=== PATIENT | female | born 1950 | race Caucasian/White ===

== ENCOUNTER 2020-02-18 08:23 | Outpatient (REF) | payer MEDICARE, BC, SELFPAY ==
[2020-02-18 11:55] LABS: Alanine Aminotransferase 32 U/L (0-31); Anion Gap 14 (12-20); Aspartate Amino Transferase 36 U/L (5-31); Blood Urea Nitrogen 21 mg/dL (9-16); Calcium 9.4 mg/dL (8.4-10.2); Carbon Dioxide 25 mmol/L (22-29); Chloride 106 mmol/L (96-108); Cholesterol 236 mg/dL; Estimated Glomerular Filt Rate 50; Glucose Fasting 90 mg/dL (60-99); HDL Cholesterol 65 mg/dL; LDL Cholesterol Calculated 131 mg/dl; Potassium 4.3 mmol/l (3.3-5.1); Sodium 141 mmol/L (135-145); Triglycerides 203 mg/dL
[2020-02-18 12:03] LABS: Vitamin D 25-OH Total 41.2 ng/mL (>30)
== END 2020-02-18 08:24 | disposition home or self-care (01) ==
LOC: HO.HMGCLDS 08:23
PROVIDERS: PCP Internal Medicine; Visit Provider Internal Medicine
DX: M17.0 Bilateral primary osteoarthritis of knee (principal); E78.5 Hyperlipidemia, unspecified; I10 Essential (primary) hypertension; Z78.0 Asymptomatic menopausal state
CPT/HCPCS: 80048; 80061; 82306; 84450; 84460

== ENCOUNTER 2020-06-06 11:00 | Outpatient (RCR) | payer MEDICARE, BC, SELFPAY ==
--- NOTE | 2020-04-26 10:54 | MHC.PT.EP ---
[facility] [facility] [place] [facility] [place] [facility] [address] Andrzej Jones [address] [phone] F: [phone] F: [phone] F: [phone] F: [phone] Physical Therapy Plan of Care Date of Evaluation: 04/26/20 Date of Surgery: Diagnosis: Pt PRESENTED W SCRIPT FOR TENDINITIS OF LEFT ANKLE Assessment: 70 YO FEMALE REF TO PT FOR LEFT LAT ANKLE TENDINITIS x 1 MONTH DURATION- SHE IS RETIRED, BUT ACTIVE. OBJECTIVELY, Pt HAS DECR AROM W ANKLE DF/ EVER/ INVR; WEAKNESS IN PROX LEs, (+) PELVIC ASYMM, AND PAIN W PALP Lt SUPRALAT MALL. SHE HAS ACHINESS INTO HER LEFT HIP W INCR WT BEARING. FUNCTIONALLY, Pt HAS NOT BEEN ABLE TO FITNESS WALK, DECR STANDING AND STAIR MGMT MELITON. HER KNEE PAIN LIMITS FUNCTIONAL SQUATTING. Pt IS A GOOD PT CANDIDATE TO ADDRESS PAIN, FUNCTIONAL, DEV HEP, AND IMPROVE SELF SX MGMT. Frequency and Duration: The patient will be seen 2 x WK x 4 WKs Short Term Goals: DECR Pt'S PAIN TO A 2-3/10 AT MAX IN 2 WKS Pt DEMON IMPROVED AROM JOSE ANKLE DF,INV,EVER IN 2 WKS Custodial Goals: Pt INDEP HEP ADDRESSING STRENGTH AND ROM AND SELF SX MGMT IN 4 WKS Pt RESUME FITNESS WALKING AND REG ADLs EVIDENT W IMPROVED LEFT SCORE BY 20 POINTS (AT EVAL 44/80) IN 4 WKS Treatment Plan: Modalities to reduce pain, spasms and effusion. Manual therapy to restore motion and function. Therapeutic exercise to improve strength and flexibility. Neuromuscular re-education for posture and balance. Therapeutic activities to return to functional activities of daily living. Electronically signed by: Viktoria Sexton, PT Please sign and return to therapist. Thank you for your referral.
--- NOTE | 2020-06-06 12:05 | MHC.PT.DC ---
[facility] [facility] [place] [facility] [place] [facility] [address] Andrzej Jones [address] [phone] F: [phone] F: [phone] F: [phone] F: [phone] Physical Therapy Discharge Report Diagnosis: Pt PRESENTED W SCRIPT FOR TENDINITIS OF LEFT ANKLE Date of Surgery: Date of Evaluation: 04/26/20 Date of Discharge: 06/06/20 Treatments to Date: 11 Cancellations to Date: 0 No Shows to Date: 0 Discharge Status: Achieved Goals Improved Function Independent with HEP Discharge Summary: Pt PLEASED W HER PROGRESS- NO PAIN W ADLs- SHE HAS RESUMED HER FITNESS WALKING W/O SXS- SHE IS COMPLIANT W HER HEP AND WAYS TO SELF-PROGRESS; MET PT GOALS, READY FOR D/C THIS DATE Electronically signed by: Viktoria Sexton, PT Please sign and return to therapist. Thank you for your referral.
== END 2020-06-06 12:07 | disposition other institution (70) ==
LOC: HO.PTCHIC 11:00
PROVIDERS: Visit Provider Internal Medicine
DX: M77.52 Other enthesopathy of left foot and ankle (principal)
CPT/HCPCS: 97110; 97112; 97140; 97162

== ENCOUNTER 2020-06-22 09:28 | Outpatient (REF) | payer MEDICARE, BC, SELFPAY ==
[2020-06-22 12:20] LABS: Vitamin D 25-OH Total 39.7 ng/mL (>30)
[2020-06-22 12:24] LABS: Alanine Aminotransferase 35 U/L (0-31); Anion Gap 14 (12-20); Aspartate Amino Transferase 39 U/L (5-31); Blood Urea Nitrogen 22 mg/dL (9-16); Calcium 9.4 mg/dL (8.4-10.2); Carbon Dioxide 26 mmol/L (22-29); Chloride 106 mmol/L (96-108); Cholesterol 237 mg/dL; Estimated Glomerular Filt Rate 54; Glucose Fasting 98 mg/dL (60-99); HDL Cholesterol 64 mg/dL; LDL Cholesterol Calculated 128 mg/dl; Potassium 4.5 mmol/L (3.3-5.1); Sodium 141 mmol/L (135-145); Triglycerides 225 mg/dL
== END 2020-06-22 09:29 | disposition home or self-care (01) ==
LOC: HO.HMGCLDS 09:28
PROVIDERS: PCP Internal Medicine; Visit Provider Internal Medicine
DX: E78.5 Hyperlipidemia, unspecified (principal); M85.832 Other specified disorders of bone density and structure, left forearm; I10 Essential (primary) hypertension; Z78.0 Asymptomatic menopausal state
CPT/HCPCS: 36415; 80048; 80061; 82306; 84450; 84460

== ENCOUNTER 2021-01-05 10:02 | Outpatient (REF) | payer MEDICARE, BC, SELFPAY ==
--- NOTE | ~2021-01-05 | MM_ITS ---
EXAMINATION: MM SCREENING DIGITAL BREAST TOMOSYNTHESIS, BILATERAL CLINICAL INFORMATION: Screening. Asymptomatic. The lifetime risk of breast cancer based on the Tyrer-Cuzick Model is 8.4%. COMPARISON: Mammography: October 12, 2019 and studies dating back to October 05, 2015 TECHNIQUE: Digital breast tomosynthesis is performed in both the craniocaudal and mediolateral oblique views along with computer-aided detection (CAD). Synthesized 2D images are generated from the tomosynthesis. FINDINGS: There are scattered areas of fibroglandular density (ACR BI-RADS breast composition Category b). There are no significant masses, abnormal calcifications, or other abnormalities. MM/MM tomosynthesis screening BI IMPRESSION: There are no significant changes from prior study. ASSESSMENT: BI-RADS 1: Negative RECOMMENDATION: Routine annual mammography screening. This patient's information was entered into a reminder system with a target due date for their next mammogram.
== END 2021-01-05 10:03 | disposition home or self-care (01) ==
LOC: HO.MAMMO 10:02
PROVIDERS: Visit Provider Internal Medicine
DX: Z12.31 Encounter for screening mammogram for malignant neoplasm of breast (principal)
CPT/HCPCS: 77063; 77067

== ENCOUNTER 2021-10-17 09:10 | Outpatient (REF) | payer MEDICARE, BC, SELFPAY ==
[2021-10-17 11:59] LABS: Alanine Aminotransferase 25 U/L (0-31); Anion Gap 15 (12-20); Aspartate Amino Transferase 21 U/L (5-31); Blood Urea Nitrogen 28 mg/dL (9-16); Calcium 9.9 mg/dL (8.4-10.2); Carbon Dioxide 25 mmol/L (22-29); Chloride 105 mmol/L (96-108); Cholesterol 257 mg/dL; Estimated Glomerular Filt Rate 40; Glucose Fasting 94 mg/dL (60-99); HDL Cholesterol 81 mg/dL; LDL Cholesterol Calculated 151 mg/dl; Potassium 5.3 mmol/L (3.3-5.1); Sodium 140 mmol/L (135-145); Triglycerides 125 mg/dL
[2021-10-17 12:03] LABS: Vitamin D 25-OH Total 30.7 ng/mL (>30)
== END 2021-10-17 09:11 | disposition home or self-care (01) ==
LOC: HO.HMGCLDS 09:10
PROVIDERS: PCP Internal Medicine; Visit Provider Internal Medicine
DX: E78.2 Mixed hyperlipidemia (principal); I10 Essential (primary) hypertension; M85.832 Other specified disorders of bone density and structure, left forearm; Z78.0 Asymptomatic menopausal state
CPT/HCPCS: 36415; 80048; 80061; 82306; 84450; 84460

== ENCOUNTER 2021-10-20 11:05 | Outpatient (REF) | payer MEDICARE, BC, SELFPAY ==
[2021-10-20 14:24] LABS: Anion Gap 14 (12-20); Carbon Dioxide 25 mmol/L (22-29); Chloride 106 mmol/L (96-108); Potassium 4.2 mmol/L (3.3-5.1); Sodium 141 mmol/L (135-145)
== END 2021-10-20 11:06 | disposition home or self-care (01) ==
LOC: HO.HMGCLDS 11:05
PROVIDERS: PCP Nurse Practitioner Family; Visit Provider Nurse Practitioner Family
DX: E87.5 Hyperkalemia (principal)
CPT/HCPCS: 36415; 80051

== ENCOUNTER 2022-01-11 10:08 | Outpatient (REF) | payer MEDICARE, BC, SELFPAY ==
--- NOTE | ~2022-01-11 | MM_ITS ---
EXAMINATION: MM SCREENING DIGITAL BREAST TOMOSYNTHESIS, BILATERAL CLINICAL INFORMATION: Screening. Asymptomatic. Family history breast cancer, sister. COMPARISON: Mammography: 01/05/2021, 10/12/2019, 06/25/2018 TECHNIQUE: Digital breast tomosynthesis is performed in both the craniocaudal and mediolateral oblique views along with computer-aided detection (CAD). Synthesized 2D images are generated from the tomosynthesis. Additional right CC view is provided. FINDINGS: The breasts are almost entirely fatty (ACR BI-RADS breast composition Category a). There are no significant masses, abnormal calcifications, or other abnormalities. Background stromal markings are stable. No developing density or architectural abnormality. No significant changes. MM/MM tomosynthesis screening BI IMPRESSION: No mammographic evidence of malignancy. ASSESSMENT: BI-RADS 1: Negative RECOMMENDATION: Routine annual mammography screening. This patient's information was entered into a reminder system with a target due date for their next mammogram.
== END 2022-01-11 10:09 | disposition home or self-care (01) ==
LOC: HO.MAMMO 10:08
PROVIDERS: PCP Nurse Practitioner Family; Visit Provider Internal Medicine
DX: Z12.31 Encounter for screening mammogram for malignant neoplasm of breast (principal)
CPT/HCPCS: 77063; 77067

== ENCOUNTER 2022-04-02 09:26 | Outpatient (REF) | payer MEDICARE, BC, SELFPAY ==
[2022-04-02 13:05] LABS: Alanine Aminotransferase 20 U/L (0-31); Aspartate Amino Transferase 30 U/L (5-31); Cholesterol 186 mg/dL; HDL Cholesterol 75 mg/dL; LDL Cholesterol Calculated 89 mg/dl; Triglycerides 114 mg/dL
== END 2022-04-02 09:27 | disposition home or self-care (01) ==
LOC: HO.HMGCLDS 09:26
PROVIDERS: PCP Internal Medicine; Visit Provider Internal Medicine
DX: E78.2 Mixed hyperlipidemia (principal)
CPT/HCPCS: 36415; 80061; 84450; 84460

== ENCOUNTER 2022-10-12 11:05 | Outpatient (REF) | payer MEDICARE, BC, SELFPAY ==
[2022-10-12 15:15] LABS: Alanine Aminotransferase 21 U/L (0-31); Anion Gap 15 (12-20); Aspartate Amino Transferase 25 U/L (5-31); Blood Urea Nitrogen 14 mg/dL (9-16); Calcium 9.6 mg/dL (8.4-10.2); Carbon Dioxide 24 mmol/L (22-29); Chloride 108 mmol/L (96-108); Cholesterol 172 mg/dL; Estimated Glomerular Filt Rate 55; Glucose Fasting 92 mg/dL (60-99); HDL Cholesterol 67 mg/dL; LDL Cholesterol Calculated 85 mg/dl; Potassium 4.5 mmol/L (3.3-5.1); Sodium 142 mmol/L (135-145); Triglycerides 103 mg/dL; Vitamin D 25-OH Total 45.1 ng/mL (>30)
== END 2022-10-12 11:06 | disposition home or self-care (01) ==
LOC: HO.HMGCLDS 11:05
PROVIDERS: PCP Internal Medicine; Visit Provider Internal Medicine
DX: E78.2 Mixed hyperlipidemia (principal); F41.1 Generalized anxiety disorder; I10 Essential (primary) hypertension; Z78.0 Asymptomatic menopausal state
CPT/HCPCS: 36415; 80048; 80061; 82306; 84450; 84460

== ENCOUNTER 2022-10-31 10:53 | Outpatient (AMB) | payer MEDICARE, BC, SELFPAY ==
[2022-10-31 10:57] VITALS: BP 130/72; PULSE 74; O2SAT 98; BMI 35.1
--- NOTE | 2022-10-31 10:57 | A.OFFVIS_ITS ---
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 ? . She sees Dr. Sexton for her routine Pap and pelvic exam, and he orders her bone density scan, last done 12/21/2020 which showed normal bone density in lumbar spine, and left femur.? Is up-to-date with her cervical cancer screening, ordered by her OBGYN, last Pap smear was done 11/23/2020 with negative findings. ? She is up-to-date with her screening colonoscopy done by Dr. Hirsch 12/16/2015 which showed an showed presence of diverticulosis and internal hemorrhoids.? To be repeated in 10 years. ? ? ? She is up-to-date with all her vaccinations including her COVID-19 vaccine, Shingrix, and influenza.? Has not had her pneumo coccal vaccine yet SWV ? Medical / Social History Reviewed? Past Medical History ?Yes . ? [place] of Care / Care Team list updated ?Yes . ? Surgical/Hospitalization History ?Yes . ? Current Medications (including OTC and supplements) ?Yes . ? Family History ?Yes . ? Tobacco Control form ?Yes . ? AUDIT-C (Alcohol use) form ?Yes . ? Illicit drug use in Social History ?Yes . ? Current diagnosis of depression? ?No ? Appropriate PHQ2/PHQ9 completed ?Yes . ? Data entered by ?[employer] Upholsterer and reviewed by provider ? Fall Risk ? Fall History? Have you had any falls with injury in the past year? ?No . ? Have you had two or more falls in the past year? ?No . ? Fall Risk Assessment: ?No falls in the past year . ? HRA filled out by the patient, reviewed by Provider and scanned. ?? SWV ? Balance? Romberg? ?Yes . ? Tandem? walk ?Yes . ? Walk and? Turn ?Yes . ? Rise from? sit to stand ?Yes . ?Vision? Corrective? lens ?no ? Vision? screen ??Up-to-date, sees Dr Mcleod ?Hearing? Whisper? test ?pass . ?Written? Plan??Completed. See Patient Documents.? HPI Comments History of Present Illness Details ? PFSH Medical History Essential hypertension Generalized anxiety disorder Menopause Mixed dyslipidemia DILAN (obstructive sleep apnea) Osteoarthritis Osteopenia of left forearm Tendinitis of left ankle Surgical History H/O section Hx of colonoscopy Hx of laparoscopic gastric banding Family History Father Diabetes mellitus Mother CVD (cardiovascular disease) Brother Diabetes mellitus Sister Brain tumor Social History Alcohol intake: never Patient Tobacco Use Status: Never used Tobacco Questionnaire Medicare Wellness Checkup [age] What gender do you identify with?: female During the past 4 weeks, how much have you been bothered by emotional problems such as feeling anxious, depressed, irritable, sad or downhearted, and blue?: slightly During the past 4 weeks, has your physical & emotional health limited your social activities with family, friends, neighbors, or groups?: quite a bit During the past 4 weeks, how much bodily pain have you generally had?: moderate pain During the past 4 weeks, was someone available to help you if you needed & wanted help?: yes, as much as I wanted During the past 4 weeks, what was the hardest physical activity you could do for at least 2 minutes?: moderate Can you get to places out of walking distance without help? (For eg., can you travel alone on buses, taxis or drive your car?): Yes Can you go shopping for groceries or clothes without someone's help?: Yes Can you prepare your own meals?: Yes Can you do your housework without help?: Yes Because of any health problems, do you need the help of another person with your personal care needs such as eating, bathing, dressing or getting around the house?: No Can you handle your own money without help?: Yes During the past 4 weeks, how would you rate your health in general?: good During the past 4 weeks how have things been going for you?: pretty well Are you having difficulties driving your car?: no Do you always fasten your seat belt when you are in a car?: yes, usually During past 4 weeks, have you been bothered by the following: never: Sexual problems?, Trouble eating well?, Teeth or denture problems? and Problems using the telephone? and seldom: Falling or dizzy when standing up and Tiredness or fatigue? Have you fallen 2 or more times in the past year?: No Are you afraid of falling?: Yes Are you a smoker?: no During the past 4 weeks, how many drinks of wine, beer, or other alcoholic beverages did you have?: no alcohol at all Do you exercise for about 20 minutes 3 or more times a week?: yes, some of the time Have you been given information to help with the following?: no: Hazards in your house that might hurt you? and no: Keeping track of your medications? How often do you have trouble taking medicines the way you have been told to take them?: I always take medicine as prescribed How confident are you that you can control & manage most of your health problems?: very confident What is your race?: White Mini Mental State Exam (MMSE) Orientation What is the (year) (season) (date) (day) (month)?: year (2022), season (Summer), date (10/31/2022), day (saturday) and month (October) Where are we (state) (county) (town or city) (hospital) (floor)?: state ([place]), formerly [facility] ([place]), town or city ([place]) and hospital/clinic ([facility]) Score Score: 9 Activity of Daily Living Transfer: moves in & out of bed and chair without help (may use support object) Continence: has occasional 'accidents' Feeding: feeds self without help Total Score: 0 Information obtained from: patient Using telephone: independent Traveling: independent Shopping: independent Preparing meals: independent Housework: independent Taking medicine: independent PHQ-9 Over the last 2 weeks, how often have you been bothered by any of the following problems? 1. Little interest or pleasure in doing things: not at all 2. Feeling down, depressed, or hopeless: not at all 3. Trouble falling or staying asleep, or sleeping too much: several days 4. Feeling tired or having little energy: several days 5. Poor appetite or overeating: not at all 6. Feeling bad about yourself - or that you are a failure or have let yourself or your family down: several days 7. Trouble concentrating on things, such as reading the newspaper or watching television: not at all 8. Moving or speaking so slowly that other people could have noticed. Or the opposite - being so fidgety or restless that you have been moving around a lot more than usual: not at all 9. Thoughts that you would be better off or of hurting yourself in some way: not at all Total score: 3 Depression Screening Interpretation: Positive (Followed at [facility]) Depression Screening Follow-up: Existing condition, In treatment and Community Mental Health Worker F/U 61429 - PHQ-9 Billing: Yes Source: Developed by Drs. James Plata, Sulma Dobbs, Afshin Sierra and colleagues, with an educational chad from [employer]. Physical Exam Vital Signs: Last Vital Signs Pulse 74 10/31/22 10:57 BP 130/72 10/31/22 10:57 Pulse Ox 98 10/31/22 10:57 BMI result Body Mass Index 35.1 Immunizations pneumoc 20-grover conj-dip cr(PF) Performing Provider: Camila William MD Administered by: Alejandro Cleveland CMA on 10/31/22 11:39 Dose Route Admin Location Lot Number Expiration Date NDC Digital Printer Operator 0.5 mL IM Left Deltoid [id number] 01/09/24 8637-9352-95 [employer] VIS Given Date VIS Provided VIS Publication Date 10/31/22 Single Vaccine 21 Eligibility Eligibility Date Funding Source Not VFC Eligible 10/31/22 Private Results Reviewed Results Reviewed: ENTERED: 10/12/22-[address]: ORDERED: Met Prof Fast, AST, ALT, Lipid Panel, Vitamin D 25-OH Test Result Flag Reference Site N Sodium 142 135-145 mmol/L Potassium 4.5 3.3-5.1 mmol/L CL 108 96-108 mmol/L CO2 24 22-29 mmol/L Gap 15 12-20 BUN 14 9-16 mg/dL Creat 0.99 0.5-1.4 mg/dL EGFR 55 NOTE: For -[place] individuals, multiply the result by 1.210. Chronic Kidney Disease: Estimated GFR < 60 mL/min/1.73m2 Severe Kidney Disease: Estimated GFR < 15 mL/min/1.73m2 FBS 92 60-99 mg/dL CA 9.6 8.4-10.2 mg/dL AST (GOT) 25 5-31 U/L ALT (GPT) 21 0-31 U/L Triglyceride 103 mg/dL Desirable Triglyceride: less than 150 mg/dL Borderline High Triglyceride 150-199 mg/dL High Triglyceride: 200-499 mg/dL Very High Triglyceride: greater than or equal to 5OO mg/dL Chol 172 mg/dL Desirable Cholesterol: less than 200 mg/dL Borderline High Cholesterol: 200-239 mg/dL High Cholesterol: greater than 239 mg/dL LDL Calculated 85 mg/dl Desirable LDL: less than 100 mg/dL Near Optimal/Above Optimal LDL: 110-129 mg/dL Borderline High LDL: 130-159 mg/dL High LDL: 160-189 mg/dL Very High LDL: greater than or equal to 190 mg/dL HDL 67 mg/dL Desirable HDL: greater than 40 mg/dL Note: This HDL assay may give artificially low results in patients with liver disease. Vit D 25-OH Tot 45.1 >30 ng/mL Health Based Reference Values* < 20 ng/mL Deficient 20-30 ng/mL Insufficient > 30 ng/mL Sufficient Assessment & Plan Assessment & Plan (1) Encounter for subsequent annual wellness visit (AWV) in Medicare patient: Code(s): Z00.00 - Encounter for general adult medical examination without abnormal findings Plan: Medical wellness checklist reviewed, discussed with patient and updated. Copy given to her. Prevnar 20 given to her today (2) Essential hypertension: Code(s): I10 - Essential (primary) hypertension Plan: Continue on lisinopril 10 mg daily (3) Mixed dyslipidemia: Code(s): E78.2 - Mixed hyperlipidemia Plan: Currently on simvastatin 20 mg daily at bedtime (4) Generalized anxiety disorder: Comment: [facility] Code(s): F41.1 - Generalized anxiety disorder Plan: Followed at [facility], currently stable on sertraline 100 mg daily (5) Osteoarthritis: Code(s): M19.90 - Unspecified osteoarthritis, unspecified site Plan: Takes meloxicam 50 mg daily as needed for joint pain (6) Advanced directives, counseling/discussion: Code(s): Z71.89 - Other specified counseling Plan: Initiated the conversation about Advanced Directives. Advanced Directives help patients prepare for current and future decisions about their medical treatment and place of care. Discussed with patient that it is a process where a patients current condition and prognosis are reviewed, their wishes for information regarding their illness are elicited, and likely medical dilemmas are presented and options discussed. MOLST and healthcare proxy form already completed and in chart. These forms can be amended as needed, reviewed yearly and make changes as needed Orders: Orders Alanine Aminotransferase 6 Months E78.2 - Mixed hyperlipidemia, I10 - Essential (primary) hypertension Aspartate Amino Transferase 6 Months E78.2 - Mixed hyperlipidemia, I10 - Essential (primary) hypertension Basic Metabolic Panel Fasting 6 Months E78.2 - Mixed hyperlipidemia, I10 - Essential (primary) hypertension Lipid Panel 6 Months E78.2 - Mixed hyperlipidemia, I10 - Essential (primary) hypertension Pneumococcal 20 Immunization 10/31/22 Z23 - Encounter for immunization Quality Reporting (2019) Depression/Bipolar (159/160/161/177) PHQ-9: Total score: 3 Coding Level of Care Code Medicare Subsequent (G0439) Diagnoses Encounter for subsequent annual wellness visit (AWV) in Medicare patient Z00.00 Essential hypertension I10 Mixed dyslipidemia E78.2 Generalized anxiety disorder F41.1 Osteoarthritis M19.90 Advanced directives, counseling/discussion Z71.89 CPT Codes Advance Care Planning - Time spent: 1-15 minutes, on File ([id number]) Advance Care Planning Date of discussion: 10/31/22 Who was present: Patient Forms completed: Health Care Proxy and MOLST Time spent: 1-15 minutes, on File Actual minutes spent: 15
== END 2022-10-31 11:40 | disposition home or self-care (01) ==
PROVIDERS: Visit Provider Internal Medicine
DX: Z00.00 Encounter for general adult medical examination without abnormal findings (principal); I10 Essential (primary) hypertension; E78.2 Mixed hyperlipidemia; F41.1 Generalized anxiety disorder; M19.90 Unspecified osteoarthritis, unspecified site; Z71.89 Other specified counseling
CPT/HCPCS: 1123F; 90471; 90677; G0439

== ENCOUNTER 2023-01-15 09:59 | Outpatient (REF) | payer MEDICARE, BC, SELFPAY ==
--- NOTE | ~2023-01-15 | MM_ITS ---
EXAMINATION: MM SCREENING DIGITAL BREAST TOMOSYNTHESIS, BILATERAL CLINICAL INFORMATION: Screening. Asymptomatic. COMPARISON: Mammography: This study is compared with prior exams dating back to 2017. TECHNIQUE: Digital breast tomosynthesis is performed in both the craniocaudal and mediolateral oblique views along with computer-aided detection (CAD). Synthesized 2D images are generated from the tomosynthesis. FINDINGS: The breasts are almost entirely fatty (ACR BI-RADS breast composition Category a). There are no significant masses, abnormal calcifications, or other abnormalities. MM/MM tomosynthesis screening BI IMPRESSION: No mammographic evidence of malignancy. ASSESSMENT: BI-RADS BI-RADS 1 - Negative RECOMMENDATION: Routine annual mammography screening. 1 year F/U This examination should not preclude the clinical evaluation of a suspicious palpable abnormality. This patient's information was entered into a reminder system with a target due date for their next mammogram.
== END 2023-01-15 10:00 | disposition home or self-care (01) ==
LOC: HO.MAMMO 09:59
PROVIDERS: PCP Internal Medicine; Visit Provider Nurse Practitioner Family
DX: Z12.31 Encounter for screening mammogram for malignant neoplasm of breast (principal)
CPT/HCPCS: 77063; 77067

== ENCOUNTER → 2023-01-15 10:15 | Outpatient (BNV) | payer MEDICARE, BC, SELFPAY | PROVIDERS: PCP Internal Medicine; Visit Provider Radiology Diagnostic Radiology | DX: Z12.31 Encounter for screening mammogram for malignant neoplasm of breast (principal) | CPT/HCPCS: 77063; 77067 ==

== ENCOUNTER 2023-05-31 08:45 | Outpatient (AMB) | payer MEDICARE, BC, SELFPAY ==
[2023-05-31 08:58] VITALS: BP 136/88; PULSE 80; O2SAT 98; BMI 34.6
--- NOTE | 2023-05-31 08:58 | A.OFFPC_ITS ---
Vital Signs 05/31/23 08:58 Height 5 ft 7 in Weight 221 lb BMI 34.6 BP 136/88 Blood Pressure Location Rt brachial Position Sitting Pulse 80 Pulse Source Pulse Oximeter Pulse Oximetry (%) 98 Oxygen Delivery Method Room Air Intake Visit Reasons: Followup DVT Intake Note: Pt is here today for her DVT f/u Allergies No Known Allergies Allergy (Verified 10/31/22 11:14) Tobacco use date assessed: 05/31/23 Fall risk assessment: No Falls in past year Last assessed Fall Risk: 05/31/23 Dental Screening Dental Screen Date: 05/31/23 Did you have a dental visit in the last 12 months?: Yes Did you have a dental problem in the last 6 months where you did not have access to dental care?: No Was dental information given to patient?: Patient has dentist HPI Followup DVT HPI Details 73-year-old lady here today for follow-u p after recent diagnosis of DVT in right peroneal and posterior tibial vein 05/29/2023. Patient recently had right total knee arthroplasty 04/23/2023, and was placed postop on aspirin to be taken for 4 weeks postoperatively. Patient however started complaining of pain and tightness in the back for right knee while she was undergoing physical therapy 4 days after discontinuation of aspirin. Venous ultrasound was ordered of right lower extremity which showed presence of clot. She was then started on Eliquis to take 10 mg 1 tablet twice a day for the for 7 days. Patient states that swelling and pain has started to resolve denies any chest pain, no shortness of breath, no headache or lightheadedness. [facility] Medical History (Updated 05/31/23 @ 09:42 by Camila William MD) History of DVT (deep vein thrombosis) DVT (deep venous thrombosis) Mixed dyslipidemia Tendinitis of left ankle DILAN (obstructive sleep apnea) Menopause Osteoarthritis Osteopenia of left forearm Generalized anxiety disorder Essential hypertension Surgical History (Updated 05/30/23 @ 17:38 by Camila William MD) History of total right knee replacement Hx of colonoscopy H/O section Hx of laparoscopic gastric banding Family History Father Diabetes mellitus Mother CVD (cardiovascular disease) Brother Diabetes mellitus Sister Brain tumor Social History Housing: House Alcohol intake: never Patient Tobacco Use Status: Never used Tobacco e-Cigarette/Vaping Use: Never Used service: No Current occupational status: retired Cognitive needs: No Hearing needs: No Vision needs: Yes Questionnaire PHQ-9 Over the last 2 weeks, how often have you been bothered by any of the following problems? 1. Little interest or pleasure in doing things: not at all 2. Feeling down, depressed, or hopeless: not at all 3. Trouble falling or staying asleep, or sleeping too much: several days 4. Feeling tired or having little energy: several days 5. Poor appetite or overeating: not at all 6. Feeling bad about yourself - or that you are a failure or have let yourself or your family down: not at all 7. Trouble concentrating on things, such as reading the newspaper or watching television: several days 8. Moving or speaking so slowly that other people could have noticed. Or the opposite - being so fidgety or restless that you have been moving around a lot more than usual: nearly every day 9. Thoughts that you would be better off or of hurting yourself in some way: not at all Total score: 6 Depression Screening Interpretation: Negative Depression Screening Done: Yes Source: Developed by Drs. James Plata, Sulma Dobbs, Afshin Sierra and colleagues, with an educational chad from [employer]. Thrive Questionnaire Date Thrive assessed: 05/31/23 I am a: Patient What is your living situation today?: I have a steady place to live Within the past 12 months, did the food you bought not last and you didn't have the money to get more?: Never true Within the past 12 months, did you worry whether your food would run out before you got money to buy more?: Sometimes True Do you have trouble paying for medicines?: No Do you have trouble getting transportation to medical appointments?: No Do you have trouble paying your heating and electricity bill?: No Do you have trouble taking care of your child, family member or friend?: No Do you have trouble with day-to-day activities such as bathing, preparing meals, shopping, managing finances, etc.?: No Are you currently unemployed and looking for a job?: No Are you interested in more education?: No THRIVE Score: 1 AUDIT C Alcohol Use Questionnaire (AUDIT-C) 1. How often do you have a drink containing alcohol?: Never Total Score: 0 NORA-7 AMB Questionnaire NORA-7 Date NORA - 7 assessed: 05/31/23 Feeling nervous, anxious, or on edge: 1 = Several days Not being able to stop or control worryin = Several days Worrying too much about different things: 1 = Several days Trouble relaxin = Not at all Being so restless that it is hard to sit still: 0 = Not at all Becoming easily annoyed or irritable: 1 = Several days Feeling afraid as if something awful might happen: 0 = Not at all Total NORA-7 score (0-4 normal; 5-9 mild; 10-14 moderate; 15-21 severe): 4 Source: Developed by Drs. James Plata, Sulma Dobbs, Afshin Sierra and colleagues, with an educational chad from [employer]. NORA-7 Assessment Billing NORA-7 Assessment Tool: NORA-7 Assessment 49288 Review of Systems Const Denies body aches, Denies fever(s) and Denies weakness ENT Denies dizziness Card Denies chest pain, Denies lightheadedness, Denies palpitations and Denies dyspnea Resp Denies chest congestion, Denies cough, Denies dyspnea and Denies wheezing GI Denies abdominal pain, Denies change in bowel habits and Denies heartburn Neuro Denies dizziness and Denies weakness Endo Denies palpitations Aller/Immun Reports seasonal rhinorrhea and Denies wheezing Physical exam (Primary Care) Vital Signs: Last Vital Signs Pulse 80 05/31/23 08:58 BP 136/88 05/31/23 08:58 Pulse Ox 98 05/31/23 08:58 Oxygen Delivery Method Room Air 05/31/23 08:58 BMI result Body Mass Index 34.6 Tobacco/Smoking Status: Tobacco use Status Tobacco use date assessed 05/31/23 05/31/23 09:04 Patient Tobacco Use Status Never used Tobacco 05/31/23 09:00 e-Cigarette/Vaping Use Never Used 05/31/23 09:04 PHQ-9: PHQ-9 Score PHQ-9: Total score 18 05/31/23 09:38 Depression Screening Interpretation: Negative Thrive Assessment: Date of Thrive Assessment Date Thrive assessed 05/31/23 05/31/23 09:07 Const General: comfortable, no acute distress and alert Orientation/consciousness: patient oriented x3 [facility] General nose exam: No nasal discharge present Mouth: oropharynx normal and moist mucous membranes Eyes General: appearance normal, both eyes and all related structures Neck Neck: Yes full ROM, Yes no lymphadenopathy and Yes supple Resp Effort & Inspection: normal respiratory effort and able to speak in complete sentences Auscultation: clear to auscultation bilaterally Cardio Rate: regular rate Rhythm: regular rhythm Heart sounds: S1 normal heart sound present and S2 normal heart sound present GI Palpation (GI): Soft to palpation, nontender and no masses Auscultation: normal bowel sounds Back/Spine/Pelvis Back: No back tenderness Skin General skin exam: no rashes or lesions noted Neuro General: patient oriented x3, gait normal, tone normal, moves all extremities, Normal light touch and pain sensation and no focal motor deficits Cranial nerves: Yes CN's II-XII intact bilaterally Cognition (Neuro): normal cognition Extrem Other: Healed surgical scar over right anterior patella General: Yes full ROM, Yes no joint enlargement, Yes no clubbing, cyanosis or edema, Yes no calf tenderness and Yes normal gait Psych Appearance: grossly normal and well kempt Mental Status: mental status grossly normal Speech and movement: Normal speech and movement present Affect: normal affect Thought process: Normal thought process present Assessment and Plan Assessment & Plan (1) History of DVT (deep vein thrombosis): Comment: Right peroneal and posterior tibial veins 05/2023, currently on Eliquis Code(s): Z86.718 - Personal history of other venous thrombosis and embolism Plan: Currently on Eliquis, to take 10 mg 1 tablet twice a day for the for 7 days and then 5 mg twice a day afterwards. Will repeat another venous ultrasound of right lower extremity in 6 months Orders: Orders US venous duplex LE RT 11/10/23 Z86.718 - Personal history of other venous thrombosis and embolism Coding Level of Care Code Tele Est Pt Level 4 (89489) Diagnoses History of DVT (deep vein thrombosis) Z86.718 Additional Codes NORA-7 Assessment Billing - NORA-7 Assessment Tool: NORA-7 Assessment 90809 ([id number])
== END 2023-05-31 09:46 | disposition home or self-care (01) ==
PROVIDERS: PCP Internal Medicine; Visit Provider Internal Medicine
DX: Z86.718 Personal history of other venous thrombosis and embolism (principal)
CPT/HCPCS: 99214

== ENCOUNTER 2023-11-04 10:11 | Outpatient (REF) | payer MEDICARE, BC, SELFPAY ==
--- NOTE | ~2023-11-04 | US_ITS ---
EXAMINATION: US TRIPLEX LOWER EXTREMITY, RIGHT CLINICAL INFORMATION: DVT diagnosed right peroneal and right tibial veins May 2023, placed on the helical risk. COMPARISON: None available. TECHNIQUE: Color-flow triplex imaging with spectral analysis and compression Doppler were performed on the right lower extremity. FINDINGS: Respiratory variation, normal compression and augmented flow are noted throughout the right lower extremity. The visualized common femoral vein, superficial femoral vein, profunda femoral vein, popliteal vein and midcalf peroneal and posterior tibial venous segments show no evidence of deep venous thrombosis. There is no Breaux's cyst. US/US venous duplex LE RT IMPRESSION: No evidence of deep venous thrombosis involving the right lower extremity. Electronically signed by: Bharath Valencia MD 11/06/2023 11:54 AM EDT
== END 2023-11-04 10:12 | disposition home or self-care (01) ==
LOC: HO.US 10:11
PROVIDERS: PCP Internal Medicine; Visit Provider Internal Medicine
DX: Z86.718 Personal history of other venous thrombosis and embolism (principal)
CPT/HCPCS: 93971

== ENCOUNTER 2023-11-21 09:28 | Outpatient (REF) | payer MEDICARE, BC, SELFPAY ==
[2023-11-21 13:42] LABS: Alanine Aminotransferase 28 U/L (0-31); Anion Gap 11 (12-20); Aspartate Amino Transferase 29 U/L (5-31); Blood Urea Nitrogen 16 mg/dL (9-16); Calcium 9.8 mg/dL (8.4-10.2); Carbon Dioxide 27 mmol/L (22-29); Chloride 108 mmol/L (96-108); Cholesterol 183 mg/dL (<200); Estimated Glomerular Filt Rate 50; Glucose Fasting 90 mg/dL (60-99); HDL Cholesterol 66 mg/dL (>40); LDL Cholesterol Calculated 91 mg/dL (<100); Potassium 3.9 mmol/L (3.3-5.1); Sodium 142 mmol/L (135-145); Triglycerides 132 mg/dL (<150)
== END 2023-11-21 09:29 | disposition home or self-care (01) ==
LOC: HO.HMGCLDS 09:28
PROVIDERS: PCP Internal Medicine; Visit Provider Internal Medicine
DX: E78.2 Mixed hyperlipidemia (principal); I10 Essential (primary) hypertension
CPT/HCPCS: 36415; 80048; 80061; 84450; 84460

== ENCOUNTER 2023-11-26 10:30 | Outpatient (AMB) | payer MEDICARE, BC, SELFPAY ==
--- NOTE | 2023-11-26 11:21 | A.OFFPC_ITS ---
Vital Signs 11/26/23 11:22 Height 5 ft 7 in Weight 215 lb BMI 33.7 BP 118/74 Blood Pressure Location Lt brachial Position Sitting Pulse 59 Pulse Source Pulse Oximeter Pulse Oximetry (%) 95 Oxygen Delivery Method Room Air Intake Visit Reasons: 6M F/U DVT lipids HTN anxiety Labs Intake Note: Pt is here today for her 6 mo.f/u Allergies No Known Allergies Allergy (Verified 12/01/23 21:49) Medication List - Last Reconciled 11/26/23 by Camila William MD apixaban 5 mg PO BID cholecalciferol (vitamin D3) 50 mcg PO DAILY levocetirizine (Xyzal) 5 mg PO DAILY lisinopril 10 mg PO DAILY sertraline 100 mg PO DAILY simvastatin 20 mg PO DAILY Tobacco use date assessed: 11/26/23 Fall risk assessment: No Falls in past year Last assessed Fall Risk: 11/26/23 Dental Screening Dental Screen Date: 11/26/23 Did you have a dental visit in the last 12 months?: Yes Did you have a dental problem in the last 6 months where you did not have access to dental care?: No Was dental information given to patient?: Patient has dentist HPI 6M F/U DVT lipids HTN anxiety Labs HPI Details 73-year-old lady with history of DVT in right peroneal and posterior tibial vein 05/29/2023 s/p right total knee arthroplasty 04/23/2023, currently on apixaban, has hypertension hyperlipidemia, general anxiety disorder, here today for follow-up. Has been feeling well, denies any pain or swelling in lower extremity. Had recent venous ultrasound, which showed no evidence of deep venous thrombosis involving the right lower . extremity. Blood pressure controlled on lisinopril, and recent labs showed normal fasting lipids. [facility] Medical History (Updated 11/26/23 @ 11:56 by Camila William MD) History of DVT (deep vein thrombosis) DVT (deep venous thrombosis) Mixed dyslipidemia Tendinitis of left ankle DILAN (obstructive sleep apnea) Menopause Osteoarthritis Osteopenia of left forearm Generalized anxiety disorder Essential hypertension Surgical History History of total right knee replacement Hx of colonoscopy H/O section Hx of laparoscopic gastric banding Family History Father Diabetes mellitus Mother CVD (cardiovascular disease) Brother Diabetes mellitus Sister Brain tumor Social History Housing: House Alcohol intake: never Patient Tobacco Use Status: Never used Tobacco e-Cigarette/Vaping Use: Never Used service: No Current occupational status: retired Cognitive needs: No Hearing needs: No Vision needs: Yes Questionnaire PHQ-9 Over the last 2 weeks, how often have you been bothered by any of the following problems? Depression Screening Interpretation: Negative Depression Screening Done: Yes Source: Developed by Drs. James Plata, Sulma Dobbs, Afshin Sierra and colleagues, with an educational chad from [employer]. Thrive Questionnaire Date Thrive assessed: 05/31/23 NORA-7 AMB Questionnaire NORA-7 Date NORA - 7 assessed: 05/31/23 Source: Developed by Drs. James Plata, Sulma Dobbs, Afshin Sierra and colleagues, with an educational chad from [employer]. Review of Systems Const Denies body aches, Denies fever(s) and Denies weakness ENT Denies dizziness Card Denies chest pain, Denies lightheadedness, Denies palpitations and Denies dyspnea Resp Denies chest congestion, Denies cough and Denies dyspnea GI Denies abdominal pain, Denies change in bowel habits and Denies heartburn Reports no additional complaints Musc Reports no additional complaints Neuro Denies dizziness and Denies weakness Psych Reports no additional complaints Endo Denies palpitations Ramirez/Lymph Reports no additional complaints Physical exam (Primary Care) Vital Signs: Last Vital Signs Pulse 59 11/26/23 11:22 BP 118/74 11/26/23 11:22 Pulse Ox 95 11/26/23 11:22 Oxygen Delivery Method Room Air 11/26/23 11:22 BMI result Body Mass Index 33.7 Tobacco/Smoking Status: Tobacco use Status Tobacco use date assessed 11/26/23 11/26/23 11:24 Patient Tobacco Use Status Never used Tobacco 11/26/23 11:24 e-Cigarette/Vaping Use Never Used 11/26/23 11:24 Depression Screening Interpretation: Negative Thrive Assessment: Date of Thrive Assessment Date Thrive assessed 05/31/23 11/26/23 11:24 Const General: comfortable, no acute distress and alert Orientation/consciousness: patient oriented x3 [facility] General nose exam: No nasal discharge present Mouth: oropharynx normal and moist mucous membranes Eyes General: appearance normal, both eyes and all related structures Neck Neck: Yes full ROM, Yes no lymphadenopathy and Yes supple Resp Effort & Inspection: normal respiratory effort and able to speak in complete sentences Auscultation: clear to auscultation bilaterally Cardio Rate: regular rate Rhythm: regular rhythm Heart sounds: S1 normal heart sound present and S2 normal heart sound present GI Palpation (GI): Soft to palpation, nontender and no masses Auscultation: normal bowel sounds Back/Spine/Pelvis Back: No back tenderness Skin General skin exam: no rashes or lesions noted Neuro General: patient oriented x3, gait normal, tone normal, moves all extremities, Normal light touch and pain sensation and no focal motor deficits Cranial nerves: Yes CN's II-XII intact bilaterally Cognition (Neuro): normal cognition Extrem Other: Healed surgical scar over right anterior patella General: Yes full ROM, Yes no joint enlargement, Yes no clubbing, cyanosis or edema, Yes no calf tenderness and Yes normal gait Psych Appearance: grossly normal and well kempt Mental Status: mental status grossly normal Speech and movement: Normal speech and movement present Affect: normal affect Thought process: Normal thought process present Results Reviewed Results Reviewed: Name: Pilar Lo Age/Sex: 73/F : 1950 Unit#: [id number] Attend Dr: Camila William MD Re11/21/23 Status: DEP [facility]: SPEC : [id number] JUAN: 11/21/23 STATUS: COMP REQ : [id number] RECD: 11/21/[address]: Camila William MD COMP: 11/21/23 ENTERED: 11/21/23-[address]: ORDERED: Met Prof Fast, AST, ALT, Lipid Panel Test Result Flag Reference Sodium 142 135-145 mmol/L Potassium 3.9 3.3-5.1 mmol/L CL 108 96-108 mmol/L CO2 27 22-29 mmol/L Gap 11 L 12-20 BUN 16 9-16 mg/dL Creat 1.08 0.5-1.4 mg/dL EGFR 50 NOTE: For -Citizen Of [place] individuals, multiply the result by 1.210. Chronic Kidney Disease: Estimated GFR < 60 mL/min/1.73m2 Severe Kidney Disease: Estimated GFR < 15 mL/min/1.73m2 FBS 90 60-99 mg/dL CA 9.8 8.4-10.2 mg/dL AST (GOT) 29 5-31 U/L ALT (GPT) 28 0-31 U/L Triglyceride 132 <150 mg/dL Desirable Triglyceride: less than 150 mg/dL Borderline High Triglyceride 150-199 mg/dL High Triglyceride: 200-499 mg/dL Very High Triglyceride: greater than or equal to 5OO mg/dL Cholesterol 183 <200 mg/dL Desirable Cholesterol: less than 200 mg/dL Borderline High Cholesterol: 200-239 mg/dL High Cholesterol: greater than 239 mg/dL LDL Calculated 91 <100 mg/dL Desirable LDL: less than 100 mg/dL Near Optimal/Above Optimal LDL: 110-129 mg/dL Borderline High LDL: 130-159 mg/dL High LDL: 160-189 mg/dL Very High LDL: greater than or equal to 190 mg/dL HDL 66 >40 mg/dL Desirable HDL: greater than 40 mg/dL Note: This HDL assay may give artificially low results in patients with liver disease. Assessment and Plan Assessment & Plan (1) History of DVT (deep vein thrombosis): Comment: Right peroneal and posterior tibial veins 05/2023, currently on Eliquis Code(s): Z86.718 - Personal history of other venous thrombosis and embolism Plan: Recent venous ultrasound did not show any evidence of thrombus, will discontinue apixaban (2) Mixed dyslipidemia: Code(s): E78.2 - Mixed hyperlipidemia Plan: Reviewed recent fasting lipid profile with patient with levels within normal limits . Continue simvastatin 20 mg daily , in addition to adherence to low-cholesterol diet and regular exercise, at least 30 minutes 3 to 4 times a week. Advised patient to make healthy food choices, eat more fruits, vegetables, whole grains, wild caught fish and low-fat dairy. Limit amount of meat and fried or fatty food products, as well as processed foods and fast foods. (3) Essential hypertension: Code(s): I10 - Essential (primary) hypertension Plan: Blood pressure at goal of less than 130/80. Continue with lisinopril 10 mg daily. Reinforced importance of following a low sodium diet, getting regular exercise, and lowering stress levels. Coding Level of Care Code Est Pt Level 4 (64326) Complex EM visit Add On G2211 Diagnoses History of DVT (deep vein thrombosis) Z86.718 Mixed dyslipidemia E78.2 Essential hypertension I10
[2023-11-26 11:22] VITALS: BP 118/74; PULSE 59; O2SAT 95; BMI 33.7
== END 2023-11-26 12:06 | disposition home or self-care (01) ==
PROVIDERS: PCP Internal Medicine; Visit Provider Internal Medicine
DX: Z86.718 Personal history of other venous thrombosis and embolism (principal); E78.2 Mixed hyperlipidemia; I10 Essential (primary) hypertension

== ENCOUNTER → 2023-11-26 10:30 | Outpatient (BNVA) | payer MEDICARE, BC, SELFPAY | PROVIDERS: PCP Internal Medicine; Visit Provider Internal Medicine | DX: E78.2 Mixed hyperlipidemia (principal); I10 Essential (primary) hypertension; Z86.718 Personal history of other venous thrombosis and embolism | CPT/HCPCS: 99212 ==

== ENCOUNTER 2024-02-29 09:55 | Outpatient (REF) | payer MEDICARE, BC, SELFPAY | END 2024-02-29 09:56 | disposition home or self-care (01) | LOC: HO.MAMMO 09:55 | PROVIDERS: PCP Internal Medicine; Visit Provider Internal Medicine | DX: Z12.31 Encounter for screening mammogram for malignant neoplasm of breast (principal) | CPT/HCPCS: 77063; 77067 ==

== ENCOUNTER → 2024-02-29 10:15 | Outpatient (BNV) | payer MEDICARE, BC, SELFPAY | PROVIDERS: PCP Internal Medicine; Visit Provider Internal Medicine | DX: Z12.31 Encounter for screening mammogram for malignant neoplasm of breast (principal) | CPT/HCPCS: 77063; 77067 ==

== ENCOUNTER 2024-05-19 09:21 | Outpatient (AMB) | payer MEDICARE, BC, SELFPAY ==
--- NOTE | 2024-05-19 09:57 | MHC.PC.OV ---
Vital Signs 05/19/24 09:59 Height 5 ft 7 in Weight 219 lb BMI 34.3 BP 124/80 Blood Pressure Location Rt brachial Position Sitting Respiration 16 Pulse 58 Pulse Source Pulse Oximeter Temp 98.1 F Temp Source Oral Pulse Oximetry (%) 98 Oxygen Delivery Method Room Air Intake Visit Reasons: cataract 06/11 w/[facility], [facility] eye Intake Note: Pt is here today for her pre-op Lt eye cataract on 06/[address] Islas Allergies No Known Allergies Allergy (Verified 05/19/24 10:16) Medication List - Last Reconciled 05/19/24 by Camila William MD cholecalciferol (vitamin D3) 50 mcg PO DAILY levocetirizine (Xyzal) 5 mg PO DAILY lisinopril 10 mg PO DAILY sertraline 100 mg PO DAILY simvastatin 20 mg PO DAILY Tobacco use date assessed: 05/19/24 Fall risk assessment: No Falls in past year Last assessed Fall Risk: 05/19/24 Dental Screening Dental Screen Date: 05/19/24 Did you have a dental visit in the last 12 months?: Yes Did you have a dental problem in the last 6 months where you did not have access to dental care?: No Was dental information given to patient?: Patient has dentist HPI cataract 06/11 w/[facility], [facility] eye HPI Details 74-year-old lady with history of hypertension, allergic rhinitis, dyslipidemia, obstructive sleep apnea, osteoarthritis , osteopenia, generalized anxiety disorder, here today for preoperative exam for cataract surgery scheduled on 06/11/2024 , requested by Dr. Worrell. She has been feeling well, compliant with her medications, and blood pressure stable and well controlled , lipids are stable and well controlled on current treatment. Her anxiety symptoms are stable and well controlled on sertraline. [facility] Medical History (Updated 05/19/24 @ 10:34 by Camila William MD) History of DVT (deep vein thrombosis) DVT (deep venous thrombosis) Mixed dyslipidemia Tendinitis of left ankle DILAN (obstructive sleep apnea) Menopause Osteoarthritis Osteopenia of left forearm Generalized anxiety disorder Essential hypertension Surgical History (Updated 05/19/24 @ 10:34 by Camila William MD) History of total right knee replacement Hx of colonoscopy H/O section Hx of laparoscopic gastric banding Family History Father Diabetes mellitus Mother CVD (cardiovascular disease) Brother Diabetes mellitus Sister Brain tumor Social History Housing: House Alcohol intake: never Patient Tobacco Use Status: Never used Tobacco e-Cigarette/Vaping Use: Never Used service: No Current occupational status: retired Cognitive needs: No Hearing needs: No Vision needs: Yes Questionnaire PHQ-9 Over the last 2 weeks, how often have you been bothered by any of the following problems? 1. Little interest or pleasure in doing things: not at all 2. Feeling down, depressed, or hopeless: not at all 3. Trouble falling or staying asleep, or sleeping too much: not at all 4. Feeling tired or having little energy: several days 5. Poor appetite or overeating: not at all 6. Feeling bad about yourself - or that you are a failure or have let yourself or your family down: not at all 7. Trouble concentrating on things, such as reading the newspaper or watching television: not at all 8. Moving or speaking so slowly that other people could have noticed. Or the opposite - being so fidgety or restless that you have been moving around a lot more than usual: not at all 9. Thoughts that you would be better off or of hurting yourself in some way: not at all Total score: 1 Depression Screening Interpretation: Negative Depression Screening Done: Yes 35209 - PHQ-9 Billing: Yes Source: Developed by Drs. James Plata, Sulma Dobbs, Afshin Sierra and colleagues, with an educational chad from [employer]. Thrive Questionnaire Date Thrive assessed: 05/19/24 I am a: Patient What is your living situation today?: I have a steady place to live Within the past 12 months, did the food you bought not last and you didn't have the money to get more?: I choose not to answer this question Within the past 12 months, did you worry whether your food would run out before you got money to buy more?: Never true Do you have trouble paying for medicines?: I choose not to answer this question Do you have trouble getting transportation to medical appointments?: No Do you have trouble paying your heating and electricity bill?: No Do you have trouble taking care of your child, family member or friend?: I choose not to answer this question Do you have trouble with day-to-day activities such as bathing, preparing meals, shopping, managing finances, etc.?: No Are you currently unemployed and looking for a job?: No Are you interested in more education?: No Please select the resources that you would like help with: None Currently or been in a relationship where the following occur: No concerns reported THRIVE Score: 0 AUDIT C Alcohol Use Questionnaire (AUDIT-C) 1. How often do you have a drink containing alcohol?: Never Total Score: 0 NORA-7 AMB Questionnaire NORA-7 Date NORA - 7 assessed: 05/19/24 Feeling nervous, anxious, or on edge: 1 = Several days Not being able to stop or control worryin = Several days Worrying too much about different things: 1 = Several days Trouble relaxin = Not at all Being so restless that it is hard to sit still: 0 = Not at all Becoming easily annoyed or irritable: 1 = Several days Feeling afraid as if something awful might happen: 0 = Not at all Total NORA-7 score (0-4 normal; 5-9 mild; 10-14 moderate; 15-21 severe): 4 Source: Developed by Drs. James Plata, Sulma Dobbs, Afshin Sierra and colleagues, with an educational chad from [employer]. NORA-7 Assessment Billing NORA-7 Assessment Tool: NORA-7 Assessment 16541 Review of Systems Const Denies body aches, Denies fever(s) and Denies weakness Eyes Reports blurry vision ENT Denies dizziness Card Denies chest pain, Denies lightheadedness and Denies dyspnea Resp Denies chest congestion, Denies cough and Denies dyspnea GI Details: Occasional heartburn after eating anything acidic especially at night. Takes Tums occasionally Denies abdominal pain and Denies change in bowel habits Reports no additional complaints Musc Reports no additional complaints Neuro Denies dizziness and Denies weakness Psych Reports no additional complaints Endo Reports no additional complaints Ramirez/Lymph Reports no additional complaints Aller/Immun Reports no additional complaints Physical exam (Primary Care) Vital Signs: Last Vital Signs Temp 98.1 F 05/19/24 09:59 Pulse 58 05/19/24 09:59 Resp 16 05/19/24 09:59 BP 124/80 05/19/24 09:59 Pulse Ox 98 05/19/24 09:59 Oxygen Delivery Method Room Air 05/19/24 09:59 BMI result Body Mass Index 34.3 Tobacco/Smoking Status: Tobacco use Status Tobacco use date assessed 05/19/24 05/19/24 10:03 Patient Tobacco Use Status Never used Tobacco 05/19/24 09:58 e-Cigarette/Vaping Use Never Used 05/19/24 09:58 PHQ-9: PHQ-9 Score PHQ-9: Total score 2 05/19/24 10:04 Depression Screening Interpretation: Negative Thrive Assessment: Date of Thrive Assessment Date Thrive assessed 05/19/24 05/19/24 10:03 Currently or been in a relationship where the following occur: No concerns reported Const General: no acute distress and alert Orientation/consciousness: patient oriented x3 HENMT Ears: external ears normal General nose exam: Normal external nose present Face and sinus: Yes face symmetric Mouth: oropharynx normal and moist mucous membranes Eyes General: appearance normal, both eyes and all related structures Neck Neck: Yes full ROM, Yes no lymphadenopathy and Yes supple Resp Effort & Inspection: normal respiratory effort and able to speak in complete sentences Auscultation: clear to auscultation bilaterally Cardio Rate: regular rate Rhythm: regular rhythm Heart sounds: S1 normal heart sound present and S2 normal heart sound present GI Palpation (GI): Soft to palpation, nontender and no masses Auscultation: normal bowel sounds Back/Spine/Pelvis Back: No back tenderness Skin General skin exam: no rashes or lesions noted Neuro General: patient oriented x3, gait normal, tone normal, moves all extremities, Normal light touch and pain sensation and no focal motor deficits Cranial nerves: Yes CN's II-XII intact bilaterally Cognition (Neuro): normal cognition Extrem General: Yes full ROM, Yes no joint enlargement, Yes no clubbing, cyanosis or edema, Yes no calf tenderness and Yes normal gait Psych Appearance: grossly normal and well kempt Mental Status: mental status grossly normal Speech and movement: Normal speech and movement present Affect: normal affect Thought process: Normal thought process present Coding Level of Care Code Est Pt Level 4 (89788) Diagnoses Preoperative examination Z01.818 Mixed dyslipidemia E78.2 DILAN (obstructive sleep apnea) G47.33 Generalized anxiety disorder F41.1 Essential hypertension I10 Additional Codes PHQ-9 - 99409 - PHQ-9 Billing: Yes ([id number]) NORA-7 Assessment Billing - NORA-7 Assessment Tool: NORA-7 Assessment 49998 ([id number]) Assessment & Plan Assessment & Plan (1) Preoperative examination: Code(s): Z01.818 - Encounter for other preprocedural examination Plan: Patient here today for preoperative exam for cataract surgery left eye scheduled for 06/11/2024, requested by Dr. Worrell. Has no known coronary artery disease or pulmonary disease, preoperative exam was unremarkable. Has a low cardiac risk index for proposed surgery (2) Mixed dyslipidemia: Code(s): E78.2 - Mixed hyperlipidemia Category: Medical Plan: fasting lipid profile ordered . Continue simvastatin 20 mg at bedtime , in addition to adherence to low-cholesterol diet and regular exercise, at least 30 minutes 3 to 4 times a week. Advised patient to make healthy food choices, eat more fruits, vegetables, whole grains, wild caught fish and low-fat dairy. Limit amount of meat and fried or fatty food products, as well as processed foods and fast foods. (3) DILAN (obstructive sleep apnea): Code(s): G47.33 - Obstructive sleep apnea (adult) (pediatric) Category: Medical Plan: Continued weight loss recommended (4) Generalized anxiety disorder: Comment: [facility] Code(s): F41.1 - Generalized anxiety disorder Category: Medical Plan: Continue on sertraline (5) Essential hypertension: Code(s): I10 - Essential (primary) hypertension Category: Medical Plan: Blood pressure at goal of less than 130/80. Continue with current medication. Reinforced importance of following a low sodium diet, getting regular exercise, and lowering stress levels.
[2024-05-19 09:59] VITALS: BP 124/80; PULSE 58; RESP 16; TEMP 36.7; O2SAT 98; BMI 34.3
== END 2024-05-19 10:53 | disposition home or self-care (01) ==
LOC: HO.HMCC 09:22
PROVIDERS: PCP Internal Medicine; Visit Provider Internal Medicine
DX: Z01.818 Encounter for other preprocedural examination (principal); E78.2 Mixed hyperlipidemia; G47.33 Obstructive sleep apnea (adult) (pediatric); F41.1 Generalized anxiety disorder; I10 Essential (primary) hypertension

== ENCOUNTER → 2024-05-19 09:21 | Outpatient (BNVA) | payer MEDICARE, BC, SELFPAY | PROVIDERS: PCP Internal Medicine; Visit Provider Internal Medicine | DX: Z01.818 Encounter for other preprocedural examination (principal); E78.2 Mixed hyperlipidemia; G47.33 Obstructive sleep apnea (adult) (pediatric); F41.1 Generalized anxiety disorder; I10 Essential (primary) hypertension | CPT/HCPCS: 96127; 99212 ==

== ENCOUNTER 2024-06-01 10:28 | Outpatient (REF) | payer MEDICARE, BC, SELFPAY ==
[2024-06-01 13:59] LABS: Alanine Aminotransferase 28 U/L (0-31); Anion Gap 11 (12-20); Aspartate Amino Transferase 36 U/L (5-31); Blood Urea Nitrogen 17 mg/dL (9-16); Calcium 9.6 mg/dL (8.4-10.2); Carbon Dioxide 28 mmol/L (22-29); Chloride 107 mmol/L (96-108); Cholesterol 202 mg/dL (<200); Estimated Glomerular Filt Rate 50; Glucose Fasting 96 mg/dL (60-99); HDL Cholesterol 78 mg/dL (>40); LDL Cholesterol Calculated 98 mg/dL (<100); Potassium 4.9 mmol/L (3.3-5.1); Sodium 141 mmol/L (135-145); Triglycerides 131 mg/dL (<150)
[2024-06-01 14:13] LABS: Vitamin D 25-OH Total 46.2 ng/mL (>30)
== END 2024-06-01 10:29 | disposition home or self-care (01) ==
LOC: HO.HMGCLDS 10:28
PROVIDERS: PCP Internal Medicine; Visit Provider Internal Medicine
DX: I10 Essential (primary) hypertension (principal); F41.1 Generalized anxiety disorder; Z78.0 Asymptomatic menopausal state; E78.2 Mixed hyperlipidemia
CPT/HCPCS: 36415; 80048; 80061; 82306; 84450; 84460

== ENCOUNTER 2024-06-10 10:36 | Outpatient (AMB) | payer MEDICARE, BC, SELFPAY ==
[2024-06-10 10:57] VITALS: BP 124/70; PULSE 60; O2SAT 98; BMI 34.6
--- NOTE | 2024-06-10 10:57 | AM.OFFVISMDC ---
Intake Vital Signs 06/10/24 10:57 Height 5 ft 7 in Weight 221 lb BMI 34.6 BP 124/70 Blood Pressure Location Lt brachial Position Sitting Pulse 60 Pulse Source Pulse Oximeter Pulse Oximetry (%) 98 Oxygen Delivery Method Room Air Intake Visit Reasons: [facility] G0439 Mri Specialist Required: No Accompanied by: Self / Same As Patient Allergies No Known Allergies Allergy (Verified 06/14/24 22:38) Medication List - Last Reconciled 06/14/24 by Camila William MD cholecalciferol (vitamin D3) 50 mcg PO DAILY levocetirizine (Xyzal) 5 mg PO DAILY lisinopril 10 mg PO DAILY semaglutide (weight loss) (Wegovy) 0.25 mg (0.5 mL) subcut QWEEK 30 days sertraline 100 mg PO DAILY simvastatin 20 mg PO DAILY Do you need a note to return to daycare/school/sports/work: No HPI [facility] G0439 HPI Details SWV ? 74 year old with a history of mixed dyslipidemia, obstructive sleep apnea, osteoarthritis, hypertension generalized anxiety disorder, here today for her subsequent annual wellness visit. She is up-to-date with her screening mammogram, done last 02/29/2024 with benign findings. Her last Pap smear was done by Dr. Sexton on 11/23/2020 with negative findings. Last colonoscopy was done by Dr. Hirsch 12/16/2015 which came back negative, to be repeated again in 2025. Her last bone density scan was done 12/21/2020 which came back with normal results. Up-to-date with her cholesterol check done together with a fasting blood sugar check on 06/01/2024 both of which came back with normal results. She is up-to-date with her yearly flu shot, COVID vaccination, has had 1 pneumonia vaccine and up-to-date with shingles and RSV vaccination. ? Medical / Social History Reviewed? Past Medical History ?Yes . ? [place] of Care / Care Team list updated ?Yes . ? Surgical/Hospitalization History ?Yes . ? Current Medications (including OTC and supplements) ?Yes . ? Family History ?Yes . ? Tobacco Control form ?Yes . ? AUDIT-C (Alcohol use) form ?Yes . ? Illicit drug use in Social History ?Yes . ? Current diagnosis of depression? ?No ? Appropriate PHQ2/PHQ9 completed ?Yes . ? Data entered by ?Long Distance Operator and reviewed by provider ? Fall Risk ? Fall History? Have you had any falls with injury in the past year? ?No . ? Have you had two or more falls in the past year? ?No . ? Fall Risk Assessment: ?No falls in the past year . ? HRA filled out by the patient, reviewed by Provider and scanned. ?? ?SWV ? Balance? Romberg ?negative. ? Tandem walk ?Yes . ? Walk and Turn ?Yes . ? Rise from sit to stand ?Yes . ?Vision? Corrective lens ?Yes ? Vision screen ? Up-to-date, sees Dr. Worrell ?Hearing? Whisper test ?pass . ?Written Plan?Completed. See Patient Documents.? HPI Comments History of Present Illness Details She has been having hard time losing weight, tried several diet plans and has been exercising regularly but unable to lose the weight. Patient would like to see if she can get a prescription for Wegovy . Patient states that her this on it and has been feeling much better, with hypertension lipids within normal limits now ever since he started taking the medication. She has no history of any thyroid disorder, does not drink alcohol, no history of pancreatitis. [facility] Medical History (Updated 06/10/24 @ 11:39 by Camila William MD) Obesity (BMI 30.0-34.9) History of DVT (deep vein thrombosis) DVT (deep venous thrombosis) Mixed dyslipidemia Tendinitis of left ankle DILAN (obstructive sleep apnea) Menopause Osteoarthritis Osteopenia of left forearm Generalized anxiety disorder Essential hypertension Surgical History History of total right knee replacement Hx of colonoscopy H/O section Hx of laparoscopic gastric banding Family History Father Diabetes mellitus Mother CVD (cardiovascular disease) Brother Diabetes mellitus Sister Brain tumor Social History Housing: House Alcohol intake: never Patient Tobacco Use Status: Never used Tobacco e-Cigarette/Vaping Use: Never Used service: No Current occupational status: retired Cognitive needs: No Hearing needs: No Vision needs: Yes Questionnaire Medicare Wellness Checkup [age] What gender do you identify with?: female During the past 4 weeks, how much have you been bothered by emotional problems such as feeling anxious, depressed, irritable, sad or downhearted, and blue?: moderately During the past 4 weeks, has your physical & emotional health limited your social activities with family, friends, neighbors, or groups?: slightly During the past 4 weeks, how much bodily pain have you generally had?: mild pain During the past 4 weeks, was someone available to help you if you needed & wanted help?: yes, as much as I wanted During the past 4 weeks, what was the hardest physical activity you could do for at least 2 minutes?: moderate Can you get to places out of walking distance without help? (For eg., can you travel alone on buses, taxis or drive your car?): Yes Can you go shopping for groceries or clothes without someone's help?: Yes Can you prepare your own meals?: Yes Can you do your housework without help?: Yes Because of any health problems, do you need the help of another person with your personal care needs such as eating, bathing, dressing or getting around the house?: Yes Can you handle your own money without help?: Yes During the past 4 weeks, how would you rate your health in general?: good During the past 4 weeks how have things been going for you?: good & bad parts about equal Are you having difficulties driving your car?: sometimes Do you always fasten your seat belt when you are in a car?: yes, usually During past 4 weeks, have you been bothered by the following: never: Falling or dizzy when standing up, Sexual problems?, Trouble eating well?, Teeth or denture problems?, Problems using the telephone? and Tiredness or fatigue? Have you fallen 2 or more times in the past year?: No Are you afraid of falling?: No Are you a smoker?: no During the past 4 weeks, how many drinks of wine, beer, or other alcoholic beverages did you have?: no alcohol at all Do you exercise for about 20 minutes 3 or more times a week?: yes, some of the time Have you been given information to help with the following?: no: Hazards in your house that might hurt you? and no: Keeping track of your medications? How often do you have trouble taking medicines the way you have been told to take them?: I always take medicine as prescribed How confident are you that you can control & manage most of your health problems?: somewhat confident What is your race?: White Mini Mental State Exam (MMSE) Orientation What is the (year) (season) (date) (day) (month)?: year (2024), season (spring), date (06/10/24), day (saturday) and month (June) Where are we (state) (county) (town or city) (hospital) (floor)?: state ([place]), county ([place]), town or city ([place]) and hospital/clinic ([facility]) Score Score: 9 Activity of Daily Living Transfer: moves in & out of bed and chair without help (may use support object) Continence: has occasional 'accidents' Feeding: feeds self without help Total Score: 0 Information obtained from: patient Using telephone: independent Traveling: independent Shopping: independent Preparing meals: independent Housework: independent Taking medicine: independent PHQ-9 Over the last 2 weeks, how often have you been bothered by any of the following problems? 1. Little interest or pleasure in doing things: not at all 2. Feeling down, depressed, or hopeless: not at all 3. Trouble falling or staying asleep, or sleeping too much: not at all 4. Feeling tired or having little energy: several days 5. Poor appetite or overeating: not at all 6. Feeling bad about yourself - or that you are a failure or have let yourself or your family down: not at all 7. Trouble concentrating on things, such as reading the newspaper or watching television: not at all 8. Moving or speaking so slowly that other people could have noticed. Or the opposite - being so fidgety or restless that you have been moving around a lot more than usual: not at all 9. Thoughts that you would be better off or of hurting yourself in some way: not at all Total score: 1 Depression Screening Interpretation: Negative Depression Screening Done: Yes 45862 - PHQ-9 Billing: Yes Source: Developed by Drs. James Plata, Sulma Dobbs, Afshin Sierra and colleagues, with an educational chad from [employer]. NORA-7 AMB Questionnaire NORA-7 Date NORA - 7 assessed: 05/19/24 Feeling nervous, anxious, or on edge: 1 = Several days Not being able to stop or control worryin = Several days Worrying too much about different things: 1 = Several days Trouble relaxin = Not at all Being so restless that it is hard to sit still: 0 = Not at all Becoming easily annoyed or irritable: 1 = Several days Feeling afraid as if something awful might happen: 0 = Not at all Total NORA-7 score (0-4 normal; 5-9 mild; 10-14 moderate; 15-21 severe): 4 Source: Developed by Drs. James Plata, Sulma Dobbs, Afshin Sierra and colleagues, with an educational chad from [employer]. NORA-7 Assessment Billing NORA-7 Assessment Tool: NORA-7 Assessment 72398 Review of Systems Const Denies fever(s), Denies headache(s) and Denies weakness Eyes Denies change in vision ENT Denies dizziness and Denies headache(s) Card Denies chest pain, Denies lightheadedness and Denies dyspnea Resp Denies cough and Denies dyspnea GI Denies abdominal pain, Denies change in bowel habits and Denies heartburn Neuro Denies dizziness, Denies headache(s) and Denies weakness Physical Exam Vital Signs: Last Vital Signs Pulse 60 06/10/24 10:57 BP 124/70 06/10/24 10:57 Pulse Ox 98 06/10/24 10:57 Oxygen Delivery Method Room Air 06/10/24 10:57 BMI result Body Mass Index 34.6 Const General: no acute distress Nutritional Appearance: obese Orientation/consciousness: patient oriented x3 Neck Other: Thyroid not enlarged, nonpalpable Neck: Yes full ROM, Yes no lymphadenopathy and Yes supple Resp Effort & Inspection: normal respiratory effort and able to speak in complete sentences Auscultation: clear to auscultation bilaterally Cardio Rate: regular rate Rhythm: regular rhythm Heart sounds: S1 normal heart sound present and S2 normal heart sound present GI Inspection: Yes normal to inspection Palpation (GI): Soft to palpation and nontender Auscultation: normal bowel sounds Neuro General: patient oriented x3, gait normal, tone normal, moves all extremities and no focal motor deficits Results Reviewed Results Reviewed: Name: Pilar Lo Age/Sex: 74/F : 1950 Unit#: [id number] Attend Dr: Camila William MD Re06/01/24 Status: DEP REF Location: [facility] Disch: SPEC : [id number] JUAN: 06/01/24-1030 STATUS: COMP REQ : [id number] RECD: 06/01/24-[address]: Camila William MD COMP: 06/01/24-1413 ENTERED: 06/01/24-[address] [facility] [address]: ORDERED: Met Prof Fast, AST, ALT, Lipid Panel, Vitamin D 25-OH Test Result Flag Reference Sodium 141 135-145 mmol/L Potassium 4.9 # 3.3-5.1 mmol/L CL 107 96-108 mmol/L CO2 28 22-29 mmol/L Gap 11 L 12-20 BUN 17 H 9-16 mg/dL Creat 1.07 0.5-1.4 mg/dL eGFR 50 Chronic Kidney Disease: Estimated GFR < 60 mL/min/1.73m2 Severe Kidney Disease: Estimated GFR < 15 mL/min/1.73m2 FBS 96 60-99 mg/dL CA 9.6 8.4-10.2 mg/dL AST (GOT) 36 H 5-31 U/L ALT (GPT) 28 0-31 U/L Triglyceride 131 <150 mg/dL Desirable Triglyceride: less than 150 mg/dL Borderline High Triglyceride 150-199 mg/dL High Triglyceride: 200-499 mg/dL Very High Triglyceride: greater than or equal to 5OO mg/dL Cholesterol 202 H <200 mg/dL Desirable Cholesterol: less than 200 mg/dL Borderline High Cholesterol: 200-239 mg/dL High Cholesterol: greater than 239 mg/dL LDL Calculated 98 <100 mg/dL Desirable LDL: less than 100 mg/dL Near Optimal/Above Optimal LDL: 110-129 mg/dL Borderline High LDL: 130-159 mg/dL High LDL: 160-189 mg/dL Very High LDL: greater than or equal to 190 mg/dL HDL 78 >40 mg/dL Desirable HDL: greater than 40 mg/dL Note: This HDL assay may give artificially low results in patients with liver disease. Vitamin D 25-OH 46.2 >30 ng/mL Health Based Reference Values* < 20 ng/mL Deficient 20-30 ng/mL Insufficient > 30 ng/mL Sufficient Assessment & Plan Assessment & Plan (1) Encounter for subsequent annual wellness visit (AWV) in Medicare patient: Code(s): Z00.00 - Encounter for general adult medical examination without abnormal findings Plan: Medical wellness checklist reviewed, discussed with patient and updated. Here with vaccinations and breast cancer, colon cancer screening (2) Obesity (BMI 30.0-34.9): Code(s): E66.811 - Obesity, class 1 Plan: Started on Wegovy at 0.25 mg per injection administer subcutaneously once a week. Discussed possible side effects of medication which may include abdominal cramping, bloating, diarrhea constipation, nausea, sudden vision changes and may cause increased risk for gallstones and pancreatitis. Combined this with adherence to healthy eating habits and getting regular exercise. Will see her back for follow-up in 6 weeks (3) Screening for osteoporosis: Code(s): Z13.820 - Encounter for screening for osteoporosis Plan: DEXA scan ordered (4) Mixed dyslipidemia: Code(s): E78.2 - Mixed hyperlipidemia Plan: Latest fasting labs showed lipids within normal limits, continue simvastatin 20 mg at bedtime (5) DILAN (obstructive sleep apnea): Code(s): G47.33 - Obstructive sleep apnea (adult) (pediatric) Plan: Weight loss recommended, currently not on CPAP (6) Osteoarthritis: Code(s): M19.90 - Unspecified osteoarthritis, unspecified site Plan: Takes [id number] Tylenol arthritis as needed (7) Generalized anxiety disorder: Comment: sees [facility] Code(s): F41.1 - Generalized anxiety disorder Plan: Continue on sertraline 100 mg daily (8) Essential hypertension: Code(s): I10 - Essential (primary) hypertension Plan: Blood pressure at goal of less than 130/80. Continue with lisinopril 10 mg daily. Reinforced importance of following a low sodium diet, getting regular exercise, and lowering stress levels. (9) Advanced directives, counseling/discussion: Code(s): Z71.89 - Other specified counseling Plan: Initiated the conversation about Advanced Directives. Advanced Directives help patients prepare for current and future decisions about their medical treatment and place of care. Discussed with patient that it is a process where a patients current condition and prognosis are reviewed, their wishes for information regarding their illness are elicited, and likely medical dilemmas are presented and options discussed. MOLST and healthcare proxy form completed today. The form can be amended as needed, reviewed yearly and make changes as needed Orders: Orders XR DEXA axial skeleton 06/10/24 Z13.820 - Encounter for screening for osteoporosis, Z78.0 - Asymptomatic menopausal state Medications: New semaglutide (weight loss) (Wegovy) administer weeks 1 through 4 of therapy 0.25 mg (0.5 mL) subcut QWEEK 30 days 2.5 mL 1RF E66.811 - Obesity, class 1, E78.2 - Mixed hyperlipidemia, G47.33 - Obstructive sleep apnea (adult) (pediatric), I10 - Essential (primary) hypertension Refilled simvastatin 20 mg PO DAILY 90 tabs 4RF E78.2 - Mixed hyperlipidemia lisinopril 10 mg PO DAILY 90 tabs 4RF Quality Reporting (2019) Depression/Bipolar (159/160/161/177) PHQ-9: Total score: 1 Coding Level of Care Code Medicare Subsequent (G0439) Est Pt Level 4 (04700) Diagnoses Encounter for subsequent annual wellness visit (AWV) in Medicare patient Z00.00 Obesity (BMI 30.0-34.9) E66.811 Screening for osteoporosis Z13.820 Mixed dyslipidemia E78.2 DILAN (obstructive sleep apnea) G47.33 Osteoarthritis M19.90 Generalized anxiety disorder F41.1 Essential hypertension I10 Advanced directives, counseling/discussion Z71.89 CPT Codes Advance Care Planning - Time spent: 16-45 minutes ([id number]) Additional Codes NORA-7 Assessment Billing - NORA-7 Assessment Tool: NORA-7 Assessment 59923 ([id number]) PHQ-9 - 04178 - PHQ-9 Billing: Yes ([id number]) Advance Care Planning Advance Care Planning discussion: Completed/Scanned Date of discussion: 06/10/24 Who was present: Patient Forms completed: Health Care Proxy and MOLST Time spent: 16-45 minutes Actual minutes spent: 3
== END 2024-06-10 11:40 | disposition home or self-care (01) ==
LOC: HO.HMCC 10:36
PROVIDERS: PCP Internal Medicine; Visit Provider Internal Medicine
DX: Z00.00 Encounter for general adult medical examination without abnormal findings (principal); E66.811 Obesity, class 1; Z68.34 Body mass index [BMI] 34.0-34.9, adult; Z13.820 Encounter for screening for osteoporosis; E78.2 Mixed hyperlipidemia; G47.33 Obstructive sleep apnea (adult) (pediatric); M19.90 Unspecified osteoarthritis, unspecified site; F41.1 Generalized anxiety disorder; I10 Essential (primary) hypertension; Z71.89 Other specified counseling

== ENCOUNTER → 2024-06-10 10:36 | Outpatient (BNVA) | payer MEDICARE, BC, SELFPAY | PROVIDERS: PCP Internal Medicine; Visit Provider Internal Medicine | DX: Z00.00 Encounter for general adult medical examination without abnormal findings (principal); E66.811 Obesity, class 1; E78.2 Mixed hyperlipidemia; G47.33 Obstructive sleep apnea (adult) (pediatric); M19.90 Unspecified osteoarthritis, unspecified site; F41.1 Generalized anxiety disorder; I10 Essential (primary) hypertension; Z71.89 Other specified counseling | CPT/HCPCS: 96127; 99212 ==

== ENCOUNTER 2024-12-31 09:33 | Outpatient (REF) | payer MEDICARE, BC, SELFPAY ==
[2024-12-31 13:36] LABS: Alanine Aminotransferase 24 U/L (0-31); Anion Gap 11 (12-20); Aspartate Amino Transferase 32 U/L (5-31); Blood Urea Nitrogen 16 mg/dL (9-16); Calcium 9.3 mg/dL (8.4-10.2); Carbon Dioxide 28 mmol/L (22-29); Chloride 108 mmol/L (96-108); Cholesterol 193 mg/dL (<200); Estimated Glomerular Filt Rate 48; HDL Cholesterol 71 mg/dL (>40); Potassium 4.3 mmol/L (3.3-5.1); Sodium 143 mmol/L (135-145); Triglycerides 109 mg/dL (<150)
== END 2024-12-31 09:34 | disposition home or self-care (01) ==
LOC: HO.HMGCLDS 09:33
PROVIDERS: PCP Internal Medicine; Visit Provider Internal Medicine
DX: I10 Essential (primary) hypertension (principal); E78.2 Mixed hyperlipidemia; E66.811 Obesity, class 1; Z13.21 Encounter for screening for nutritional disorder
CPT/HCPCS: 36415; 80048; 80061; 82306; 84450; 84460

== ENCOUNTER 2025-01-04 10:48 | Outpatient (AMB) | payer MEDICARE, BC, SELFPAY ==
--- NOTE | 2025-01-04 11:53 | MHC.PC.OV ---
Vital Signs 01/04/25 12:00 Height 5 ft 7 in Weight 218 lb BMI 34.1 BP 120/80 Blood Pressure Location Rt brachial Position Sitting Respiration 16 Pulse 63 Pulse Source Pulse Oximeter Temp 98.0 F Temp Source Oral Pulse Oximetry (%) 98 Oxygen Delivery Method Room Air Intake Visit Reasons: 6 months f/up Intake Note: Pt is here today for her 6mo. 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 Required: No Allergies No Known Allergies Allergy (Verified 01/10/25 03:34) Medication List - Last Reconciled 01/10/25 by Camila William MD cholecalciferol (vitamin D3) 50 mcg PO DAILY levocetirizine (Xyzal) 5 mg PO DAILY lisinopril 10 mg PO DAILY sertraline 100 mg PO DAILY simvastatin 20 mg PO DAILY Tobacco use date assessed: 05/19/24 Fall risk assessment: 1 Fall in past year Last assessed Fall Risk: 01/04/25 Dental Screening Dental Screen Date: 01/04/25 Did you have a dental visit in the last 12 months?: Yes Did you have a dental problem in the last 6 months where you did not have access to dental care?: Yes Was dental information given to patient?: Patient has dentist HPI 6 months f/up HPI Details The patient is a 74-year-old female with a history of hypertension, dyslipidemia, obesity, obstructive sleep apnea and generalized anxiety disorder, presenting for a follow-up visit. The patient's hypertension is reportedly well-controlled on lisinopril 10 mg daily but latest fasting labs showed a decline in renal function. She does not have diabetes and has no family history of kidney disease. She denies taking NSAIDs such as ibuprofen, Motrin, Aleve, or Advil. Her fasting lab results also showed a slight increase in LDL cholesterol to 101, but her good cholesterol is noted to be very good. 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 She recently moved her sister into an assisted living facility and has taken over as the executor of her affairs. [facility] Medical History (Updated 01/04/25 @ 12:26 by Camila William MD) Decreased renal function Obesity (BMI 30.0-34.9) History of DVT (deep vein thrombosis) DVT (deep venous thrombosis) Mixed dyslipidemia Tendinitis of left ankle DILAN (obstructive sleep apnea) Menopause Osteoarthritis Osteopenia of left forearm Generalized anxiety disorder Essential hypertension Surgical History History of total right knee replacement Hx of colonoscopy H/O section Hx of laparoscopic gastric banding Family History Father Diabetes mellitus Mother CVD (cardiovascular disease) Brother Diabetes mellitus Sister Brain tumor Social History Housing: House Alcohol intake: never Patient Tobacco Use Status: Never used Tobacco e-Cigarette/Vaping Use: Never Used service: No Current occupational status: retired Cognitive needs: No Hearing needs: No Vision needs: Yes Questionnaire Thrive Questionnaire Date Thrive assessed: 05/19/24 I am a: Patient What is your living situation today?: I have a steady place to live Within the past 12 months, did the food you bought not last and you didn't have the money to get more?: I choose not to answer this question Within the past 12 months, did you worry whether your food would run out before you got money to buy more?: Never true Do you have trouble paying for medicines?: I choose not to answer this question Do you have trouble getting transportation to medical appointments?: No Do you have trouble paying your heating and electricity bill?: No Do you have trouble taking care of your child, family member or friend?: I choose not to answer this question Do you have trouble with day-to-day activities such as bathing, preparing meals, shopping, managing finances, etc.?: No Are you currently unemployed and looking for a job?: No Are you interested in more education?: No Please select the resources that you would like help with: None Currently or been in a relationship where the following occur: No concerns reported THRIVE Score: 0 NORA-7 AMB Questionnaire NORA-7 Date NORA - 7 assessed: 05/19/24 Source: Developed by Drs. James Plata, Sulma Dobbs, Afshin Sierra and colleagues, with an educational chad from [employer]. Review of Systems Const Denies fever(s), Denies headache(s) and Denies weakness Eyes Denies change in vision ENT Denies dizziness and Denies headache(s) Card Denies chest pain, Denies lightheadedness and Denies dyspnea Resp Denies cough and Denies dyspnea GI Denies abdominal pain, Denies change in bowel habits and Denies heartburn Reports no additional complaints Musc Reports no additional complaints Neuro Denies dizziness, Denies headache(s) and Denies weakness Psych Reports no additional complaints Endo Reports no additional complaints Ramirez/Lymph Reports no additional complaints Physical exam (Primary Care) Vital Signs: Last Vital Signs Temp 98.0 F 01/04/25 12:00 Pulse 63 01/04/25 12:00 Resp 16 01/04/25 12:00 BP 120/80 01/04/25 12:00 Pulse Ox 98 01/04/25 12:00 Oxygen Delivery Method Room Air 01/04/25 12:00 BMI result Body Mass Index 34.1 Tobacco/Smoking Status: Tobacco use Status Tobacco use date assessed 05/19/24 01/04/25 11:55 Patient Tobacco Use Status Never used Tobacco 01/04/25 11:55 e-Cigarette/Vaping Use Never Used 01/04/25 11:55 Thrive Assessment: Date of Thrive Assessment Date Thrive assessed 05/19/24 01/04/25 11:55 Currently or been in a relationship where the following occur: No concerns reported Const General: no acute distress and alert Orientation/consciousness: patient oriented x3 HENMT Ears: external ears normal General nose exam: Normal external nose present Face and sinus: Yes face symmetric Mouth: moist mucous membranes Eyes General: appearance normal, both eyes and all related structures Neck Neck: Yes full ROM, Yes no lymphadenopathy and Yes supple Resp Effort & Inspection: normal respiratory effort and able to speak in complete sentences Auscultation: clear to auscultation bilaterally Cardio Rate: regular rate Rhythm: regular rhythm Heart sounds: S1 normal heart sound present and S2 normal heart sound present GI Palpation (GI): Soft to palpation, nontender and no masses Auscultation: normal bowel sounds Neuro General: patient oriented x3, gait normal, tone normal, moves all extremities, Normal light touch and pain sensation and no focal motor deficits Cranial nerves: Yes CN's II-XII intact bilaterally Cognition (Neuro): normal cognition Extrem General: Yes full ROM, Yes no joint enlargement, Yes no clubbing, cyanosis or edema, Yes no calf tenderness and Yes normal gait Psych Appearance: grossly normal and well kempt Mental Status: mental status grossly normal Speech and movement: Normal speech and movement present Affect: normal affect Results Reviewed Results Reviewed: Name: Pilar Lo Age/Sex: 74/F : 1950 Unit#: [id number] Attend Dr: Camila William MD Re12/31/24 Status: DEP [facility] Disch: SPEC : [id number] JUAN: 12/31/24 STATUS: COMP REQ : [id number] RECD: 12/31/[address]: Camila William MD COMP: 12/31/24 ENTERED: 12/31/[address]: ORDERED: Met Prof Fast, AST, ALT, Lipid Panel, Vitamin D 25-OH Test Result Flag Reference Sodium 143 135-145 mmol/L Potassium 4.3 3.3-5.1 mmol/L CL 108 96-108 mmol/L CO2 28 22-29 mmol/L Gap 11 L 12-20 BUN 16 9-16 mg/dL Creat 1.11 0.5-1.4 mg/dL eGFR 48 Chronic Kidney Disease: Estimated GFR < 60 mL/min/1.73m2 Severe Kidney Disease: Estimated GFR < 15 mL/min/1.73m2 FBS 96 60-99 mg/dL CA 9.3 8.4-10.2 mg/dL AST (GOT) 32 H 5-31 U/L ALT (GPT) 24 0-31 U/L Triglyceride 109 <150 mg/dL Desirable Triglyceride: less than 150 mg/dL Borderline High Triglyceride 150-199 mg/dL High Triglyceride: 200-499 mg/dL Very High Triglyceride: greater than or equal to 5OO mg/dL Cholesterol 193 <200 mg/dL Desirable Cholesterol: less than 200 mg/dL Borderline High Cholesterol: 200-239 mg/dL High Cholesterol: greater than 239 mg/dL LDL Calculated 101 H <100 mg/dL Desirable LDL: less than 100 mg/dL Near Optimal/Above Optimal LDL: 110-129 mg/dL Borderline High LDL: 130-159 mg/dL High LDL: 160-189 mg/dL Very High LDL: greater than or equal to 190 mg/dL HDL 71 >40 mg/dL Desirable HDL: greater than 40 mg/dL Note: This HDL assay may give artificially low results in patients with liver disease. Vitamin D 25-OH 55.3 >30 ng/mL Health Based Reference Values* < 20 ng/mL Deficient 20-30 ng/mL Insufficient > 30 ng/mL Sufficient Coding Level of Care Code Est Pt Level 4 (06203) Complex EM visit Add On G2211 Diagnoses Essential hypertension I10 Decreased renal function N28.9 Generalized anxiety disorder F41.1 Mixed dyslipidemia E78.2 Assessment & Plan Assessment & Plan (1) Essential hypertension: Code(s): I10 - Essential (primary) hypertension Category: Medical Plan: Blood pressure at goal of less than 130/80. Continue with current medication. Reinforced importance of following a low sodium diet, getting regular exercise, and lowering stress levels. (2) Decreased renal function: Code(s): N28.9 - Disorder of kidney and ureter, unspecified Category: Medical Plan: Nephrology consult ordered, continued avoidance of NSAIDs, stay well-hydrated, (3) Generalized anxiety disorder: Comment: sees [facility] Code(s): F41.1 - Generalized anxiety disorder Category: Medical Plan: Continued on sertraline 100 mg daily (4) Mixed dyslipidemia: Code(s): E78.2 - Mixed hyperlipidemia Category: Medical Plan: Continue simvastatin 20 mg daily Orders: Orders Alanine Aminotransferase 06/05/25 E66.811 - Obesity, class 1, E78.2 - Mixed hyperlipidemia, F41.1 - Generalized anxiety disorder, I10 - Essential (primary) hypertension, N28.9 - Disorder of kidney and ureter, unspecified, R53.83 - Other fatigue, Z78.0 - Asymptomatic menopausal state Basic Metabolic Panel Fasting 06/05/25 E66.811 - Obesity, class 1, E78.2 - Mixed hyperlipidemia, F41.1 - Generalized anxiety disorder, I10 - Essential (primary) hypertension, N28.9 - Disorder of kidney and ureter, unspecified, R53.83 - Other fatigue, Z78.0 - Asymptomatic menopausal state Vitamin D 25-OH Total 06/05/25 E66.811 - Obesity, class 1, E78.2 - Mixed hyperlipidemia, F41.1 - Generalized anxiety disorder, I10 - Essential (primary) hypertension, N28.9 - Disorder of kidney and ureter, unspecified, R53.83 - Other fatigue, Z78.0 - Asymptomatic menopausal state Vitamin B12 and Folate 06/05/25 E66.811 - Obesity, class 1, E78.2 - Mixed hyperlipidemia, F41.1 - Generalized anxiety disorder, I10 - Essential (primary) hypertension, N28.9 - Disorder of kidney and ureter, unspecified, R53.83 - Other fatigue, Z78.0 - Asymptomatic menopausal state Lipid Panel 06/05/25 E66.811 - Obesity, class 1, E78.2 - Mixed hyperlipidemia, F41.1 - Generalized anxiety disorder, I10 - Essential (primary) hypertension, N28.9 - Disorder of kidney and ureter, unspecified, R53.83 - Other fatigue, Z78.0 - Asymptomatic menopausal state Aspartate Amino Transferase 06/05/25 E66.811 - Obesity, class 1, E78.2 - Mixed hyperlipidemia, F41.1 - Generalized anxiety disorder, I10 - Essential (primary) hypertension, N28.9 - Disorder of kidney and ureter, unspecified, R53.83 - Other fatigue, Z78.0 - Asymptomatic menopausal state Referrals Nephrology Referral I10 - Essential (primary) hypertension, N28.9 - Disorder of kidney and ureter, unspecified
[2025-01-04 12:00] VITALS: BP 120/80; PULSE 63; RESP 16; TEMP 36.7; O2SAT 98; BMI 34.1
--- OUTSIDE RECORDS SUMMARY | 2025-01-04 13:26 | XMS_ITS | Patient Health Record ---
Author Organization [facility] Address [address] [place] [address] Care Team Providers Care Pressure Controller Name Role Phone Concepción(inactive) Anton CHA Primary Care Provider U James Magallanes Unavailable [phone] Allergies Allergen (clinical drug ingredient) Drug/Non Drug Allergy documented on EMR Reaction Allergy Type Onset Date Status adhesives (uncoded) Unknown Allergy Active Reason For Referral No Information Medications Medication SIG (Take, Route, Fr equency, Duration) Notes Start Date End Date Status Vitamin D3 Active Simvastatin Active Sertraline HCl Activ e Lisinopril Active Daily Vitamin Active Problems Problem Type SNOMED Code ICD Code Onset Dates Problem Status W/U Status Risk Notes Problem Colon cancer screening (063104548) Colon cancer screening (Z12.11) Active confirmed Problem Preprocedural examination (972546021751377) Preprocedural examination (Z01.818) Active confirmed Plan Of Treatment Future Test Test Name Order Date COLONOSCOPY 08/09/2015 Insurance Providers Payer Name Payer Address Payer Phone Subscriber Number Group Number Insured Name Patient Relationship to Insured Coverage Start Date Coverage End Date [facility] [address] [place], [place] [id number] [place] Self - patient is the insured Medical (General) History Medical History History ICD Code colonoscopy 12-06-2005--hyper plastic polyp--mild diverticulosis and internal hemorrhoids hypertension anxiety Denies OH,DM,CVA,Lung disease,renal dise ase hypercholesterolemia sleep apnea--resolved after her weight l oss--not using CPAP Surgical History Surgery Date(Month/Year) Lap band--approx 2007-Dr. Mimi obrien--lost 65#--band is still inflated Liposuction--Dr. Kennedy
== END 2025-01-04 12:33 | disposition home or self-care (01) ==
LOC: HO.HMCC 10:50
PROVIDERS: PCP Internal Medicine; Visit Provider Internal Medicine
DX: I10 Essential (primary) hypertension (principal); N28.9 Disorder of kidney and ureter, unspecified; F41.1 Generalized anxiety disorder; E78.2 Mixed hyperlipidemia

== ENCOUNTER → 2025-01-04 10:48 | Outpatient (BNVA) | payer MEDICARE, BC, SELFPAY | PROVIDERS: PCP Internal Medicine; Visit Provider Internal Medicine | DX: I10 Essential (primary) hypertension (principal); N28.9 Disorder of kidney and ureter, unspecified; F41.1 Generalized anxiety disorder; E78.2 Mixed hyperlipidemia | CPT/HCPCS: 99212 ==

== ENCOUNTER 2025-01-20 11:46 | Outpatient (AMB) | payer MEDICARE, BC, SELFPAY ==
--- NOTE | 2025-01-20 11:56 | HO.NEPHOV_ITS ---
Vital Signs 01/20/25 11:57 Height 5 ft 7 in Weight 218 lb 8 oz BMI 34.2 BP 130/70 Blood Pressure Location Rt brachial Position Sitting Pulse 54 Pulse Source Pulse Oximeter Pulse Oximetry (%) 97 Oxygen Delivery Method Room Air Intake Visit Reasons: INP:Disorder of kidney and ureter, Essential HTN Digital Campaign Specialist Required: No Accompanied by: Spouse Allergies No Known Allergies Allergy (Verified 01/20/25 11:57) HPI Comments Details: Pilar is a 74-year-old female whom I had the privilege of seeing in consultation for sub normal GFR. She has hypertension and is on lisinopril 10 mg daily. She has no edema or macroscopic hematuria. Her GFR has been subnormal for some time. She has H/O renal calculus but no hearing deficits, epistaxis, skin rashes, photosensitivity, CVA, CAD, CHF, CHAN, PAD or known carotid stenosis. She has H/O dyslipidemia, but no new back/bone pain, H/O para proteinemia, hypercalcemia. She has no renal dysfunction in her family. She used to take excessive NSAID's in the past for her right knee OA. [facility] Medical History (Updated 01/20/25 @ 13:25 by Quinton Jama MD) Decreased renal function Obesity (BMI 30.0-34.9) History of DVT (deep vein thrombosis) DVT (deep venous thrombosis) Mixed dyslipidemia Tendinitis of left ankle DILAN (obstructive sleep apnea) Menopause Osteoarthritis Osteopenia of left forearm Generalized anxiety disorder Essential hypertension Surgical History History of total right knee replacement Hx of colonoscopy H/O section Hx of laparoscopic gastric banding Family History Father Diabetes mellitus Mother CVD (cardiovascular disease) Brother Diabetes mellitus Sister Brain tumor Social History Housing: House Alcohol intake: never Patient Tobacco Use Status: Never used Tobacco e-Cigarette/Vaping Use: Never Used service: No Current occupational status: retired Cognitive needs: No Hearing needs: No Vision needs: Yes Review of Systems Const All systems reviewed & are unremarkable except as noted in HPI and below Physical Exam Vital Signs: Last Vital Signs Pulse 54 01/20/25 11:57 BP 130/70 01/20/25 11:57 Pulse Ox 97 01/20/25 11:57 Oxygen Delivery Method Room Air 01/20/25 11:57 BMI result Body Mass Index 34.2 Const General: comfortable and no acute distress Orientation/consciousness: patient oriented x3 HEENT Head: Yes normocephalic Mouth: Normal oral and palatal mucosa present Eyes EOM: EOMs intact bilaterally Neck Neck: Yes supple Resp Auscultation: clear to auscultation bilaterally Cardio Jugular venous distension: no JVD Rate: regular rate GI Palpation (GI): Soft to palpation Auscultation: normal bowel sounds General: Yes no CVA tenderness Back/Spine/Pelvis Back: no CVA tenderness Skin General skin exam: no rashes or lesions noted Neuro General: patient oriented x3 and moves all extremities Extrem General: Yes no pedal edema Results Reviewed Nephrology Results: Sodium, (135-145) 143 mmol/L 12/31/24 Potassium, (3.3-5.1) 4.3 mmol/L 12/31/24 Chloride, (96-108) 108 mmol/L 12/31/24 Carbon Dioxide, (22-29) 28 mmol/L 12/31/24 BUN, (9-16) 16 mg/dL 12/31/24 Creatinine, (0.5-1.4) 1.11 mg/dL 12/31/24 Calcium, (8.4-10.2) 9.3 mg/dL 12/31/24 Assessment & Plan Assessment & Plan (1) Decreased renal function: Code(s): N28.9 - Disorder of kidney and ureter, unspecified Category: Medical (2) Essential hypertension: Code(s): I10 - Essential (primary) hypertension Category: Medical (3) Renal calculi: Code(s): N20.0 - Calculus of kidney Category: Medical Plan Pilar likely has mild CKD from long standing HTN, age related loss of renal function and excessive use of NSAID's in the past Her GFR is currently stable. Her UO is good and has not had any renal calculus lately. She is on ACEI and her BP is at goal She maintains good hydration and avoids NSAID's. I have ordered renal imaging, blood work and 24 hour urine for cr cl All these have been explained in detail to her and her . Answered all questions and follow up was given Orders: Orders Creatinine Clearance Urine 24U Today N28.9 - Disorder of kidney and ureter, unspecified Blood Urea Nitrogen Today N28.9 - Disorder of kidney and ureter, unspecified US renal BI 3 Weeks N28.9 - Disorder of kidney and ureter, unspecified Electrolytes Today N28.9 - Disorder of kidney and ureter, unspecified Creatinine Today N28.9 - Disorder of kidney and ureter, unspecified Calcium Today N28.9 - Disorder of kidney and ureter, unspecified Immunofixation Pnl, Serum Today N28.9 - Disorder of kidney and ureter, unspecified Protein Creatinine Ratio, Ur Today I10 - Essential (primary) hypertension, N28.9 - Disorder of kidney and ureter, unspecified UA and rflx microscopic Today I10 - Essential (primary) hypertension, N28.9 - Disorder of kidney and ureter, unspecified Coding Level of Care Code New Pt Level 4 (12154) Diagnoses Decreased renal function N28.9 Essential hypertension I10 Renal calculi N20.0
[2025-01-20 11:57] VITALS: BP 130/70; PULSE 54; O2SAT 97; BMI 34.2
--- OUTSIDE RECORDS SUMMARY | 2025-01-20 14:39 | XMS_ITS | Patient Health Record ---
Author Organization [facility] Address [address] [place] [address] Care Team Providers Care Fox Raiser Name Role Phone Concepción(inactive) Anton CHA Primary Care Provider U James Magallanes [phone] Allergies Allergen (clinical drug ingredient) Drug/Non Drug [...] Status Risk Notes Problem Colon cancer screening (118076149) Colon cancer screening (Z12.11) Active confirmed Problem Preprocedural examination (294738609030997) Preprocedural examination (Z01.818) Active confirmed Plan Of Treatment Future Test Test Name Order Date COLONOSCOPY 08/09/2015 Insurance Providers Payer Name Payer Address Payer Phone Subscriber Number Group Number Insured Name Patient Relationship to Insured Coverage Start Date Coverage End Date [facility] [address] [place], [place] [id number] [phone] [id number] [place] Self - patient is the insured Medical (General) History Medical History History ICD Code colonoscopy 12-06-2005--hyper plastic polyp--mild diverticulosis and internal hemorrhoids hypertension anxiety Denies CA,DM,CVA,Lung disease,renal dise ase hypercholesterolemia sleep apnea--resolved after her weight l oss--not using CPAP Surgical History Surgery Date(Month/Year) Lap band--approx 2007-Dr. Mimi obrien--lost 65#--band is still inflated Liposuction--Dr. Kennedy
== END 2025-01-20 12:38 | disposition home or self-care (01) ==
LOC: HO.HKA 11:47
PROVIDERS: PCP Internal Medicine; Referring Provider Internal Medicine; Visit Provider Internal Medicine Nephrology
DX: N28.9 Disorder of kidney and ureter, unspecified (principal); I10 Essential (primary) hypertension; N20.0 Calculus of kidney
CPT/HCPCS: 99204

== ENCOUNTER → 2025-01-20 11:46 | Outpatient (BNVA) | payer MEDICARE, BC, SELFPAY | PROVIDERS: PCP Internal Medicine; Referring Provider Internal Medicine; Visit Provider Internal Medicine Nephrology | DX: I10 Essential (primary) hypertension (principal); N20.0 Calculus of kidney; N28.9 Disorder of kidney and ureter, unspecified | CPT/HCPCS: 99202 ==

== ENCOUNTER 2025-02-09 13:42 | Outpatient (REF) | payer MEDICARE, BC, SELFPAY ==
--- NOTE | ~2025-02-09 | US_ITS ---
CLINICAL HISTORY: N28.9 - Disorder of kidney and ureter, unspecified Ultrasound kidneys. COMPARISON: None provided. Technique: Real time sonographic imaging, including color-flow imaging, was performed by the housing assistant property manager. Multiple ocean import representative static images were saved for review. FINDINGS: Right kidney: Mildly decreased corticomedullary differentiation. Normal color flow by Doppler. No calculus or focal parenchymal abnormality identified. No hydronephrosis. Right kidney size: 8.7 x 3.4 x 5.4 cm Left kidney: Mildly decreased corticomedullary differentiation. Normal color flow by Doppler. No calculus or focal parenchymal abnormality identified. No hydronephrosis. Left kidney size: 9.1 x 3.5 x 4.4 cm IMPRESSION: 1. No evidence of renal obstruction. 2. Mildly decreased corticomedullary differentiation can be associated with medical renal disease. This document has been electronically signed by: Joss Nathan MD on 02/09/2025 16:06:38
== END 2025-02-09 13:43 | disposition home or self-care (01) ==
LOC: HO.HMGCX 13:42
PROVIDERS: PCP Internal Medicine; Visit Provider Internal Medicine Nephrology
DX: N28.9 Disorder of kidney and ureter, unspecified (principal)
CPT/HCPCS: 76775

== ENCOUNTER → 2025-02-09 13:45 | Outpatient (BNV) | payer MEDICARE, BC, SELFPAY | PROVIDERS: PCP Internal Medicine; Visit Provider Radiology Diagnostic Radiology | DX: N28.9 Disorder of kidney and ureter, unspecified (principal) | CPT/HCPCS: 76775 ==

== ENCOUNTER 2025-02-18 11:13 | Outpatient (REF) | payer MEDICARE, BC, SELFPAY ==
[2025-02-18 12:06] LABS: Anion Gap 12 (12-20); Blood Urea Nitrogen 19 mg/dL (9-16); Calcium 9.6 mg/dL (8.4-10.2); Carbon Dioxide 26 mmol/L (22-29); Chloride 110 mmol/L (96-108); Estimated Glomerular Filt Rate 42; Potassium 5.0 mmol/L (3.3-5.1); Sodium 143 mmol/L (135-145)
[2025-02-18 12:15] LABS: Appearance Urine Clear; Glucose Urine UA Negative (Negative); PH 6.0 (5.0-9.0); Specific Gravity - Urine 1.020 (1.005-1.025); UMIC TRIGGER UA YES
[2025-02-18 12:39] LABS: Creatinine, mg/dL 62.39
[2025-02-18 12:41] LABS: Total Protein Urine Random < 7 mg/dL (<12)
[2025-02-18 13:39] LABS: Creatinine (CrCl) 1.26 mg/dL (0.5-1.4); Total Volume 24 Hour Urine 1650 mL
== END 2025-02-18 11:14 ==
LOC: HO.LAB 11:13
PROVIDERS: PCP Internal Medicine; Visit Provider Internal Medicine Nephrology
DX: I10 Essential (primary) hypertension (principal); N28.9 Disorder of kidney and ureter, unspecified
CPT/HCPCS: 36415; 80051; 81001; 81003; 82310; 82565; 82570; 82575; 82784; 84156; 84520; 86334

== ENCOUNTER 2025-02-24 10:14 | Outpatient (AMB) | payer MEDICARE, BC, SELFPAY ==
--- NOTE | 2025-02-24 10:28 | HO.NEPHOV_ITS ---
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 She has hypertension and is on lisinopril 10 mg daily. She has no edema or macroscopic hematuria. Her GFR has been subnormal for some time. She has H/O renal calculus but no hearing deficits, epistaxis, skin rashes, photosensitivity, CVA, CAD, CHF, CHAN, PAD or known carotid stenosis. She has H/O dyslipidemia, but no new back/bone pain, H/O para proteinemia, hypercalcemia. S he has no renal dysfunction in her family. She used to take excessive NSAID's in the past for her right knee OA. [facility] Medical History (Updated 01/20/25 @ 13:25 by Quinton Jama MD) Decreased renal function Obesity (BMI 30.0-34.9) History of DVT (deep vein thrombosis) DVT (deep venous thrombosis) Mixed dyslipidemia Tendinitis of left ankle DILAN (obstructive sleep apnea) Menopause Osteoarthritis Osteopenia of left forearm Generalized anxiety disorder Essential hypertension Surgical History History of total right knee replacement Hx of colonoscopy H/O section Hx of laparoscopic gastric banding Family History Father Diabetes mellitus Mother CVD (cardiovascular disease) Brother Diabetes mellitus Sister Brain tumor Social History Housing: House Alcohol intake: never Patient Tobacco Use Status: Never used Tobacco e-Cigarette/Vaping Use: Never Used service: No Current occupational status: retired Cognitive needs: No Hearing needs: No Vision needs: Yes Review of Systems Const All systems reviewed & are unremarkable except as noted in HPI and below Physical Exam Vital Signs: Last Vital Signs BP 110/60 02/24/25 10:29 BMI result Body Mass Index 34.5 Const General: comfortable and no acute distress Orientation/consciousness: patient oriented x3 HEENT Head: Yes normocephalic Mouth: Normal oral and palatal mucosa present Eyes EOM: EOMs intact bilaterally Neck Neck: Yes supple Resp Auscultation: clear to auscultation bilaterally Cardio Jugular venous distension: no JVD Rate: regular rate GI Palpation (GI): Soft to palpation Auscultation: normal bowel sounds General: Yes no CVA tenderness Back/Spine/Pelvis Back: no CVA tenderness Skin General skin exam: no rashes or lesions noted Neuro General: patient oriented x3 and moves all extremities Extrem General: Yes no pedal edema Results Reviewed Nephrology Results: Sodium, (135-145) 143 mmol/L 02/18/25 Potassium, (3.3-5.1) 5.0 mmol/L 02/18/25 Chloride, (96-108) 110 mmol/L H 02/18/25 Carbon Dioxide, (22-29) 26 mmol/L 02/18/25 BUN, (9-16) 19 mg/dL H 02/18/25 Creatinine, (0.5-1.4) 1.26 mg/dL 02/18/25 Calcium, (8.4-10.2) 9.6 mg/dL 02/18/25 Urine Protein, (Neg-Trace) Negative mg/dL 02/18/25 Urine Creatinine 153.54 mg/dL 02/18/25 Protein/Creatinin Ratio TNP 02/18/25 Renal US 02/09/25 Assessment & Plan Assessment & Plan (1) Essential hypertension: Code(s): I10 - Essential (primary) hypertension Category: Medical (2) Decreased renal function: Code(s): N28.9 - Disorder of kidney and ureter, unspecified Category: Medical Plan 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 Her UO is good and has not had any renal calculus lately. She is on ACEI and her BP is at goal She maintains good hydration and avoids NSAID's. Her renal imaging, blood work and 24 hour urine for cr cl were reviewed. All these have been explained in detail to her and her . Answered all questions and follow up was given Orders: Orders Creatinine 6 Months I10 - Essential (primary) hypertension, N28.9 - Disorder of kidney and ureter, unspecified Electrolytes 6 Months I10 - Essential (primary) hypertension, N28.9 - Disorder of kidney and ureter, unspecified Blood Urea Nitrogen 6 Months I10 - Essential (primary) hypertension, N28.9 - Disorder of kidney and ureter, unspecified Coding Level of Care Code Est Pt Level 4 (43780) Diagnoses Essential hypertension I10 Decreased renal function N28.9
[2025-02-24 10:29] VITALS: BP 110/60; BMI 34.5
--- OUTSIDE RECORDS SUMMARY | 2025-02-24 12:35 | XMS_ITS | Patient Health Record ---
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 Name Role Phone Concepción(inactive) Anton CHA Primary Care Provider U James Magallanes [phone] Allergies Allergen (clinical drug ingredient) Drug/Non Drug Allergy documented on EMR Reaction Allergy Type Onset Date Status adhesives (uncoded) Unknown Allergy Active Reason For Referral No Information Medications Medication SIG (Take, Route, Fr equency, Duration) Notes Start Date End Date Status Vitamin D3 Active Simvastatin Active Sertraline HCl Activ e Lisinopril Active Daily Vitamin Active Social History Social History Additional Details Category Social Info Options Details Miscellaneous: Marital status: Occupation: retired Section Notes: Nonsmoker; no significant al cohol Problems Problem Type SNOMED Code ICD Code Onset Dates Problem Status W/U Status Risk Notes Problem Colon cancer screening (078965087) Colon cancer screening (Z12.11) Active confirmed Problem Preprocedural examination (988265988093779) Preprocedural examination (Z01.818) Active confirmed Plan Of Treatment Future Test Test Name Order Date COLONOSCOPY 08/09/2015 Insurance Providers Payer Name Payer Address Payer Phone Subscriber Number Group Number Insured Name Patient Relationship to Insured Coverage Start Date Coverage End Date [facility] [address] [place], [place] [id number] [phone] [id number] [place] Self - patient is the insured Medical (General) History Medical History History ICD Code colonoscopy 12-06-2005--hyper plastic polyp--mild diverticulosis and internal hemorrhoids hypertension anxiety Denies SD,DM,CVA,Lung disease,renal dise ase hypercholesterolemia sleep apnea--resolved after her weight l oss--not using CPAP Surgical History Surgery Date(Month/Year) Lap band--approx 2007-Dr. Mimi obrien--lost 65#--band is still inflated Liposuction--Dr. Kennedy
== END 2025-02-24 10:51 | disposition home or self-care (01) ==
LOC: HO.HKA 10:15
PROVIDERS: PCP Internal Medicine; Visit Provider Internal Medicine Nephrology
DX: I10 Essential (primary) hypertension (principal); N28.9 Disorder of kidney and ureter, unspecified
CPT/HCPCS: 99214

== ENCOUNTER → 2025-02-24 10:14 | Outpatient (BNVA) | payer MEDICARE, BC, SELFPAY | PROVIDERS: PCP Internal Medicine; Visit Provider Internal Medicine Nephrology | DX: I10 Essential (primary) hypertension (principal); N28.9 Disorder of kidney and ureter, unspecified | CPT/HCPCS: 99212 ==

== ENCOUNTER 2025-03-10 09:58 | Outpatient (REF) | payer MEDICARE, BC, SELFPAY ==
--- NOTE | ~2025-03-10 | MM_ITS ---
EXAMINATION: DXA BONE DENSITY AXIAL HISTORY: Z78.0 - Asymptomatic menopausal state TECHNIQUE: IM-Sense Dual energy absorptiometry (DEXA) of the lumbar spine, total left hip, and femoral neck was performed. COMPARISON: There are no prior studies for comparison. FINDINGS: The bone mineral density of the lumbar spine is 1.335 g/cm2, corresponding to a T-score of 1.4, and a Z-score of 2.1. This is indicative of normal bone mineral density. The bone mineral density of the left total hip is 0.842 g/cm2, corresponding to a T-score of -0.5, and a Z-score of 0.4. This is indicative of normal bone mineral density. The bone mineral density of the left femoral neck is 0.901 g/cm2, corresponding to a T-score of -1.0, and a Z-score of 0.2. This is indicative of normal bone mineral density. FRACTURE RISK: The FRAX index suggests a risk of major osteoporotic fracture of 8.9%, and of hip fracture 1.2%. MM/XR DEXA axial skeleton IMPRESSION: Based on bone mineral density, and according to World Health Organization (WHO) criteria, the diagnosis is consistent with normal bone mineral density. Statistically, 68% of repeat scans fall within 1 SD (+/- 0.010 g/cm2 for AP spine L1-L4) and 1 SD (+/- 0.012 g/cm2 for femur total) FRAX is a trademark of the [employer]'s [place] [employer] Metabolic Bone Disease, a World Health Organization (WHO) Collaborating Center. Electronically signed by: James Zamora MD 03/10/2025 10:56 AM [facility]
--- NOTE | ~2025-03-10 | MM_ITS ---
EXAMINATION: MM SCREENING DIGITAL BREAST TOMOSYNTHESIS, BILATERAL CLINICAL INFORMATION: Screening. Asymptomatic. COMPARISON: Mammography: Comparison is made with available priors TECHNIQUE: Digital breast mammography with tomosynthesis is performed in both the craniocaudal and mediolateral oblique views along with computer-aided detection (CAD). FINDINGS: There are scattered areas of fibroglandular density. There are no significant masses, abnormal calcifications, or other abnormalities. MM/MM tomosynthesis screening BI IMPRESSION: No mammographic evidence of malignancy. ASSESSMENT: BI-RADS Category 1: Negative RECOMMENDATION: Routine annual mammography screening. 1 year F/U This examination should not preclude the clinical evaluation of a suspicious palpable abnormality. This patient's information was entered into a reminder system with a target due date for their next mammogram. Electronically signed by: Mayra Osborn DO 03/12/2025 04:51 PM [facility]
--- OUTSIDE RECORDS SUMMARY | 2025-03-10 10:49 | XMS_ITS | Patient Health Record ---
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 Role Phone Concepción(inactive) Anton CHA Primary Care Provider U James Magallanes [phone] Allergies Allergen (clinical drug ingredient) Drug/Non Drug [...] Status Risk Notes Problem Colon cancer screening (167164953) Colon cancer screening (Z12.11) Active confirmed Problem Preprocedural examination (249935804718040) Preprocedural examination (Z01.818) Active confirmed Plan Of Treatment Future Test Test Name Order Date COLONOSCOPY 08/09/2015 Insurance Providers Payer Name Payer Address Payer Phone Subscriber Number Group Number Insured Name Patient Relationship to Insured Coverage Start Date Coverage End Date [facility] [address] [place], [place] [id number] [phone] [id number] [place] Self - patient is the insured Medical (General) History Medical History History ICD Code colonoscopy 12-06-2005--hyper plastic polyp--mild diverticulosis and internal hemorrhoids hypertension anxiety Denies NH,DM,CVA,Lung disease,renal dise ase hypercholesterolemia sleep apnea--resolved after her weight l oss--not using CPAP Surgical History Surgery Date(Month/Year) Lap band--approx 2007-Dr. Mimi obrien--lost 65#--band is still inflated Liposuction--Dr. Kennedy
== END 2025-03-10 09:59 | disposition home or self-care (01) ==
LOC: HO.MAMMO 09:58
PROVIDERS: PCP Internal Medicine; Visit Provider Internal Medicine
DX: Z13.820 Encounter for screening for osteoporosis (principal); Z12.31 Encounter for screening mammogram for malignant neoplasm of breast; Z78.0 Asymptomatic menopausal state
CPT/HCPCS: 77063; 77067; 77080

== ENCOUNTER → 2025-03-10 10:30 | Outpatient (BNV) | payer MEDICARE, BC, SELFPAY | PROVIDERS: PCP Internal Medicine; Visit Provider Radiology Diagnostic Radiology | DX: E28.39 Other primary ovarian failure (principal) | CPT/HCPCS: 77080 ==